=== PATIENT | male | born 1930 | race Caucasian/White ===

== ENCOUNTER 2016-12-04 18:25 | Inpatient (IN) | payer MEDICARE, MEDICAID ==
[2016-12-04 20:05] LABS: HEMATOCRIT 37.1 % (39.0-49.0); HEMOGLOBIN 12.7 gm/dL (12.6-17.4); MEAN CELL VOLUME 92.7 fl (80-99); MEAN CORPUSCULAR HEMOGLOBIN 31.7 pg (27.0-31.0); MEAN CORPUSCULAR HGB CONC 34.2 pg (28.0-36.0); MEAN PLATELET VOLUME 8.5 fl; PLATELET COUNT 81 Th/cmm (150-400); RED CELL DISTRIBUTION WIDTH 14.1 % (11.5-20.0); WHITE BLOOD COUNT 2.9 Th/cmm (4.8-10.8)
[2016-12-04 20:19] LABS: ALB/GLOB RATIO 0.8 (1.0-1.8); ALKALINE PHOSPHATASE 182 U/L (34-104); ANION GAP 15.4 (7.0-16.0); BILIRUBIN,TOTAL 0.7 mg/dL (0.3-1.0); BUN - UREA NITROGEN 37 mg/dL (7-25); BUN/CREATININE RATIO 6.7; CALCIUM SERUM 8.5 mg/dL (8.6-10.3); CARBON DIOXIDE 30.6 mEq/L (21.0-31.0); CHLORIDE 97 mEq/L (98-107); GLUCOSE 111 mg/dL (70-105); SGOT 22 U/L (13-39); SGPT/ALT 23 U/L (7-52); SODIUM SERUM 139 mEq/L (136-145)
[2016-12-04 20:24] LABS: CREATININE - SERUM 5.5 mg/dL (0.7-1.3)
[2016-12-04 20:25] LABS: URINE BILIRUBIN SMALL (NEGATIVE); URINE COLOR ORANGE; URINE GLUCOSE (UA) NEGATIVE (NEGATIVE); URINE KETONE NEGATIVE (NEGATIVE)
[2016-12-04 20:26] LABS: URINE BLOOD LARGE (NEGATIVE); URINE PROTEIN >300 mg/dL (NEGATIVE); URINE UROBILINOGEN 0.2 E.U./dL (0.2 - 1.0)
[2016-12-04 20:27] LABS: URINE BACTERIA MANY /hpf (NONE SEEN); URINE EPITHELIAL CELLS FEW /lpf (FEW); URINE RBC 50-100 /hpf (0-5)
[2016-12-04 20:29] LABS: URINE WBC 25-50 /hpf (0-5)
[2016-12-04 20:40] LABS: BAND NEUTROPHILE 7 % (0-10); NEUTROPHILS 73 % (40-80); PLATELET ESTIMATE DECREASED PLATELETS (NORMAL); PLATELET MORPHOLOGY NORMAL (NORMAL); TOTAL CELLS COUNTED 100
[2016-12-04] MEDS ORDERED: Sodium Chloride 0.9% 100 ML IV ONE (20:53)
--- NOTE | 2016-12-04 22:08 | ED Physician Chart ---
Chief Complaint/HPI - Patient Information Date Seen:: 12/04/16 Time Seen:: 18:45 Chief Complaint:: hematuria History of Present Illness:: location: general quality: hematuria severity: mild duration: couple of days context: dialysis patient with persistent hematuria. pt baseline is severe dementia with little to no verbal communication. pt is awake, alert while in ER. no acute distress, no diaphoresis. no vomiting, no fever. pt reports no pain and also does not appear to be in any discomfort during ER stay. mod factors: none assoc s/s: none hx from facility RN and medic and Dr. Artis Allergies:: Allergies Allergy/AdvReac Type Severity Reaction Status Date / Time No Known Allergies Allergy Verified 12/04/16 18:39 Vitals:: Vital Signs - 8 hr 12/04/16 12/04/16 18:35 20:00 Temp 99.4 F 99.4 F HR 90 90 RR 20 20 BP 144/56 121/61 O2 Sat % 96 95 Historian:: EMS, Medical Records, Other Review:: Nurse's Note Reviewed, EMS run form Reviewed Review of Systems - Review of Systems General/Constitutional: No fever, No chills, No weight loss, No weakness, No diaphoresis, No edema, No loss of appetite Skin: No skin lesions, No rash, No bruising Head: No headache, No light-headedness Eyes: No loss of vision, No pain, No diplopia ENT: No earache, No nasal drainage, No sore throat, No tinnitus Neck: No neck pain, No swelling, No thyromegaly, No stiffness, No mass noted Cardio Vascular: No chest pain, No palpitations, No PND, No orthopnea, No edema Pulmonary: No SOB, No cough, No sputum, No wheezing GI: No nausea, No vomiting, No diarrhea, No pain, No melena, No hematochezia, No constipation, No hematemesis G/U: No dysuria, No frequency, No hematuria Musculoskeletal: No bone or joint pain, No back pain, No muscle pain Endocrine: No polyuria, No polydipsia Psychiatric: No prior psych history, No depression, No anxiety, No suicidal ideation Hematopoietic: No bruising, No lymphadenopathy Allergic/Immuno: No urticaria, No angioedema Neurological: No syncope, No focal symptoms, No weakness, No paresthesia, No headache, No seizure, No dizziness, No confusion, No vertigo Past Medical History - Past Medical History Past Medical History: HTN, CAD, PUD/GERD, ESRD, Other (gout, anemia, neuropathy) Family History: None Social History: Non Smoker, No Alcohol, No Drug Use, Single, Care Facility Surgical History: other (left upper limb AV fistula) Psychiatricy History: None Medication: Reviewed Family Medical History - Family Member Mother History Unknown: Yes Physical Exam - Physical Examination General/Constitutional: Awake, Well-developed, well-nourished, Alert, No distress, GCS 15, Non-toxic appearing Head: Atraumatic Eyes: Lids, conjuctiva normal, PERRL, EOMI Skin: Nl inspection, No rash, No skin lesions, No ecchymosis, Well hydrated, No lymphadenopathy ENMT: External ears, nose nl, Nasal exam nl, Lips, teeth, gums nl Neck: Nontender, Full ROM w/o pain, No JVD, No nuchal rigidity, No stridor Respiratory: Nl effort/Exclusion, Clear to Auscultation, No Wheeze/Rhonchi/Rales Cardio Vascular: RRR, No murmur, gallop, rubs, NL S1 S2 GI: No tenderness/rebounding/guarding, Normal BS's, Nondistended, No McBurney tenderness : No CVA tenderness Extremities: No tenderness or effusion, Full ROM, normal strength in all extremities, No edema, Normal digits & nails Neuro/Psych: Alert/oriented (pt is alert but does not speak during this exam. staff report this is baseline for this patient. that the patient does not usually speak ), Normal sensory exam, Normal motor strength Misc: normal gait, Normal back, No paraspinal tenderness Labs/Radiology/EKG Results - Lab Results Results: Laboratory Tests 12/04/16 12/04/16 12/04/16 19:40 19:54 19:54 WBC 2.9 L RBC 4.00 Hgb 12.7 Hct 37.1 L MCV 92.7 MCH 31.7 H MCHC Differential 34.2 RDW 14.1 Plt Count 81 L MPV 8.5 Band Neutrophils % 7 Neutrophils (Manual) 73 Lymphocytes 16 L Monocytes 4 Platelet Estimate DECREASED PLATELETS Platelet Morphology NORMAL RBC Morph Micro Appear NORMAL Sodium Potassium Chloride Carbon Dioxide Anion Gap BUN Creatinine Est GFR ( Amer) Est GFR (Non-Af Amer) BUN/Creatinine Ratio Glucose Whole Bld Lactic Acid 2.88 H* Calcium Total Bilirubin AST ALT Alkaline Phosphatase Total Protein Albumin Globulin Albumin/Globulin Ratio Urine Source [place] Urine Color ORANGE Urine Clarity SLIGHTLY CLOUDY Urine pH 7.0 Ur Specific [place] Urine Protein >300 H Urine Glucose (UA) NEGATIVE Urine Ketones NEGATIVE Urine Blood LARGE H Urine Nitrate NEGATIVE Urine Bilirubin SMALL H Urine Urobilinogen 0.2 Ur Leukocyte Esterase LARGE H Urine RBC 50-100 H Urine WBC 25-50 H Ur Epithelial Cells FEW Urine Bacteria MANY 12/04/16 19:54 WBC RBC Hgb Hct MCV MCH MCHC Differential RDW Plt Count MPV Band Neutrophils % Neutrophils (Manual) Lymphocytes Monocytes Platelet Estimate Platelet Morphology RBC Morph Micro Appear Sodium 139 Potassium 4.0 Chloride 97 L Carbon Dioxide 30.6 Anion Gap 15.4 BUN 37 H Creatinine 5.5 H* Est GFR ( Amer) TNP Est GFR (Non-Af Amer) TNP BUN/Creatinine Ratio 6.7 Glucose 111 H Whole Bld Lactic Acid Calcium 8.5 L Total Bilirubin 0.7 AST 22 ALT 23 Alkaline Phosphatase 182 H Total Protein 6.7 Albumin 3.0 L Globulin 3.7 Albumin/Globulin Ratio 0.8 L Urine Source Urine Color Urine Clarity Urine pH Ur Specific [place] Urine Protein Urine Glucose (UA) Urine Ketones Urine Blood Urine Nitrate Urine Bilirubin Urine Urobilinogen Ur Leukocyte Esterase Urine RBC Urine WBC Ur Epithelial Cells Urine Bacteria - Radiology Results Results: CXR no acute pneumothorax no acute rib fracture no acute infiltrate ER READ - EKG Interpretations Comments:: EKG NSR [address] elevation no acute ST depression old anterior infarct abnormal EKG ER READ Assessment - Assessment General Assessment: pt stable while in ER. ED Septic Shock - . Is Septic Shock (SBP<90, OR Lactate>4 mmol\L) present?: No - <6hrs of presentation: Vital Signs: Vital Signs - 8 hr 12/04/16 12/04/16 18:35 20:00 Temp 99.4 F 99.4 F HR 90 90 RR 20 20 BP 144/56 121/61 O2 Sat % 96 95 Assessment of Lungs: Documented in PE (scant crackles at lung bases bilaterally) Assessment of Heart: RRR EKG Interpretation: NSR Capillary refill evaluation: Capillary refill < 2 secs Skin Exam: Warm, Dry, Good Turgur, No Diaphoresis, No Mottling, No Edema, No Erythema Reassessment (Disposition) - Reassessment Reassessment:: ER course: pt stable during ER stay, occasional nonproductive cough. no fever, no vomiting, no tachycardia or tachypnea. stable during ER stay. nonverbal throughout. MDM: dialysis patient with obvious signs of urinary infection and unable to mount a typical white cell response. pt has remained stable throughout. lactate is elevated. pt is given small fluid bolus and monitored repeat lactic acid is trending downward. pt stable. will recommend admission and management of near sepsis/ sepsis urosepsis. pt case d/w Dr. Artis Reassessment Condition:: Improved - Diagnosis Diagnosis:: acute urosepsis - Patient Disposition Discharge/Transfer:: Acute Care w/in this hosp Admitted to:: Med/Surg Admitting Medical Physician:: Ted Damon Condition at Disposition:: Stable, Improved
[2016-12-04] MEDS: cefTRIAXone 1 GM in Sodium Chloride 0.9% 50 ML IV SCH (22:18)
--- NOTE | 2016-12-04 23:19 | Admit Criteria Form ---
Admit Criteria Forms - Admit Criteria Diagnosis: SEPSIS and OTHER FEBRILE ILLNESS, W/O FOCAL INFECTION Clinical Indications for Admission to Inpatient Care ( Place 'X' for any and all applicable criteria): Admission is indicated for ANY ONE of the following (1)(2)(3)(4): [ ] I. Bacteremia [ X]II. Suspected or identified specific infection requiring hospitalization (eg, meningitis, endocarditis) [ ]III. Hemodynamic instability [ ]IV. Altered mental status [ ]V. Failure or unavailability of outpatient antimicrobial treatment [ ]. Hypoxemia [ ]VII. Seizures [ ]VIII. High-risk febrile neutropenia [ ]IX. Need for parenteral antibiotic in patient who is likely to abuse vascular access device (eg, injection drug user) [A](7) [ ]X. Temperature greater than 104.9 degrees F (40.5 degrees C) (oral) [ X]XI. Inpatient admission required rather than observation care because of ANY ONE of the following: [ ]1) Specific infection identified that is too severe for outpatient treatment or observation care trial [ ]2) Metabolic disorder (eg, hypoglycemia, hyperglycemia, metabolic acidosis) that is severe or persistent [ ]3) Temperature greater than 103.1 degrees F (39.5 degrees C) ( oral) that is not responsive to observation care treatment [ ]4) IV fluid to replace significant ongoing (eg, for over 24 hours) losses (> 3 L/m2 per day) [ ]5) Supplemental oxygen or respiratory treatments for over 24 hours that is performable only in acute inpatient setting [ ]6) Parenteral nutrition regimen need that must be implemented on inpatient basis [ ]7) Strict or protective (eg, laminar flow) isolation [X ]8) Other condition, treatment or monitoring requiring inpatient admission Extended stay beyond goal length of stay may be needed for(1)(3) [ ]a) Sepsis or septic shock(22) [ ]b) Positive blood cultures [ ]c) Insufficient oral intake [ ]d) High-risk febrile neutropenia(29)(30) [ ]e) Continued fever and clinical instability [ ]f) Clinically active comorbid illness (e.g,heart failure, renal failure , diabetes) The original [employer] content created by [employer] has been revised. The portions of the content which have been revised are identified through the use of italic text or in bold, and [facility] [employer] has neither reviewed nor approved the modified material. All other unmodified content is copyright [facility]. Please see references footnoted in the original [facility] edition 2016 Admit Criteria Met?: Yes
[2016-12-05 05:55] LABS: HEMATOCRIT 35.5 % (39.0-49.0); HEMOGLOBIN 12.2 gm/dL (12.6-17.4); MEAN CELL VOLUME 93.1 fl (80-99); MEAN CORPUSCULAR HGB CONC 34.3 pg (28.0-36.0); MEAN PLATELET VOLUME 8.3 fl; PLATELET COUNT 68 Th/cmm (150-400); RED BLOOD COUNT 3.82 Mil/cmm (3.80-5.80); RED CELL DISTRIBUTION WIDTH 14.5 % (11.5-20.0)
[2016-12-05 06:15] LABS: ALB/GLOB RATIO 0.9 (1.0-1.8); ALKALINE PHOSPHATASE 155 U/L (34-104); ANION GAP 12.4 (7.0-16.0); BILIRUBIN,TOTAL 0.5 mg/dL (0.3-1.0); BUN - UREA NITROGEN 45 mg/dL (7-25); CALCIUM SERUM 8.2 mg/dL (8.6-10.3); CARBON DIOXIDE 31.6 mEq/L (21.0-31.0); CHLORIDE 99 mEq/L (98-107); GLUCOSE 84 mg/dL (70-105); SGOT 18 U/L (13-39); SGPT/ALT 20 U/L (7-52); SODIUM SERUM 139 mEq/L (136-145)
[2016-12-05 06:17] LABS: CREATININE - SERUM 6.4 mg/dL (0.7-1.3)
[2016-12-05] MEDS ORDERED: Piperacillin Sodium/Tazobact 2.25 gm Vial IV ONE (06:36)
[2016-12-05 07:39] LABS: WHITE BLOOD COUNT 2.2 Th/cmm (4.8-10.8)
[2016-12-05] MEDS ORDERED: Vancomycin HCl 1.5 GM in Sodium Chloride 0.9% 500 ML IV ONE (08:00)
[2016-12-05 09:53] LABS: BAND NEUTROPHILE 3 % (0-10); NEUTROPHILS 60 % (40-80); PLATELET ESTIMATE DECREASED PLATELETS (NORMAL); PLATELET MORPHOLOGY NORMAL (NORMAL); TOTAL CELLS COUNTED 100
--- NOTE | 2016-12-05 11:51 | History & Physical ---
PATIENT IDENTIFICATION: An 86-year-old male. CHIEF COMPLAINT: Sent to Emergency Room for evaluation of altered mental status with blood in the urine. HISTORY OF PRESENT ILLNESS: An 86-year-old resident of [facility], currently on dialysis dependent, has history of chronic pain syndrome, spinal stenosis, history of diabetes mellitus, hypertension, gout, recently started to have a fever and chills. For that, the patient was given symptomatic therapy, no improvement. The patient was given antibiotic as well. The patient started to have evidence of altered mental status with fluctuating blood pressure. The patient was sent to the Emergency Room at [facility] where the patient was evaluated and sent to the patient home. It was noted by the nursing staff that when patient came back to the facility, the patient had a ethel blood in the urine. The patient was scheduled to have dialysis done. I did advise that the patient should be transferred out to [facility] for further management in the view of his fluctuating blood pressure with hematuria and fluctuating mental status. The patient has significant dementia as well as language barrier. Limited history is available. PAST MEDICAL HISTORY: Remarkable for: 1. Diabetes. 2. Hypertension. 3. DJD. 4. End-stage renal disease, on hemodialysis. 5. Gout. 6. Thrombocytopenia and leukopenia. MEDICATIONS: Has been reviewed and reconciled. ALLERGIES: The patient is not allergic to medications. SOCIAL HISTORY: The patient resides in a correction. The patient has no smoking, alcohol or drug use. FAMILY MEDICAL HISTORY: Remarkable for diabetes. REVIEW OF SYSTEMS: Unable to obtain meaningful history from the patient. PHYSICAL EXAMINATION: GENERAL: An 86-year-old, alert, awake, lying in the bed without any acute distress. VITAL SIGNS: Temperature 99, pulse is 100, respiratory rate is 18, blood pressure is 164/86. SKIN: Warm to touch. HEENT: Normocephalic, atraumatic. Extraocular muscles are intact. Tongue was pink and coated. Poor dentition noted. NECK: Supple, no JVD, no hepatojugular reflux. No lymphadenopathy. No thyromegaly or carotid bruit. HEART: Both heart sounds are regular. CHEST AND LUNGS: Equal in expansion with no expiratory wheezing. ABDOMEN: Soft. No guarding, no rigidity. Liver, spleen palpable. No palpable mass. EXTREMITIES: No edema, no cyanosis. AV graft noted with good bruit. BACK: No kyphosis or scoliosis. NEUROLOGIC: Alert, awake, follows simple commands. AVAILABLE DIAGNOSTIC DATA: Has been reviewed. CLINICAL IMPRESSION: 1. Significant hematuria with urinary tract infections in the presence of diabetes and immunocompromised status, suspect patient has most likely complicated urinary tract infection with possible evidence of pyelonephritis. 2. Elevated lactic acid, suspect patient has sepsis. 3. End-stage renal disease, on hemodialysis. 4. Leukopenia and thrombocytopenia, chronic needs further evaluation. 5. Diabetes mellitus. 6. Degenerative joint disease. 7. Dementia. 8. Gout. PLAN: 1. Admit this patient to Med/Surg floor. 2. IV antibiotic. 3. Infectious Disease consultation. 4. Appropriate home medicine reconciliation. 5. Hematology/Oncology evaluation for thrombocytopenia and leukemia. 6. General nursing care. 7. Follow up labs. 8. Appropriate home medicine reconciliation. 9. Follow consult recommendations. 10. Care plan reviewed and discussed with staff. [facility]# [id number]
--- NOTE | 2016-12-05 11:52 | Diagnostic Imaging Report ---
CHEST X-RAY: AP view INDICATION: Cough COMPARISON: None FINDINGS: Chronic changes are seen with increased left basal lung markings. No focal consolidation or pleural effusions. Heart size is normal. Atherosclerosis is noted. Degenerative changes of the spine are noted. A vascular stent of the left upper x-rays partially visualized. IMPRESSION: Chronic lung changes and increased left basal lung markings which may be due to subsegmental atelectasis versus scarring. Acute processes is considered less likely. Please correlate clinically. No focal consolidation identified. Atherosclerotic vascular disease.
[2016-12-05] MEDS: INSULIN ASPART SLIDING SCALE 100 UNITS/ML UNIT SUBQ SCH ×3 (12:26→20:53)
--- NOTE | 2016-12-05 12:56 | Diagnostic Imaging Report ---
Head CT without intravenous contrast Indication: CVA Comparison: None Technique: Axial images were obtained from the vertex to the skull base without IV contrast. Coronal reconstructions were made. Total DLP: 712, CTDI37.4 FINDINGS: Images of the brain obtained without contrast demonstrate no evidence of acute hemorrhage. Atrophy is noted. Mild white matter disease is noted. The ventricles and basal cisterns are patent. No mass effect or midline shift. There is mucosal thickening of paranasal sinuses. Atherosclerosis is noted. There is a chronic appearing left-sided pneumatic arch fracture and chronic appearing nasal fractures. IMPRESSION: No evidence of an acute intracranial hemorrhage. Atrophy. Mild supratentorial white matter disease which is nonspecific and may be due to chronic microvessel ischemia.. If indicated follow-up MRI may also be obtained for further assessment. Atherosclerotic vascular disease. Old nasal and old left zygomatic arch fractures.
--- NOTE | 2016-12-05 15:44 | Infectious Disease Prog Note ---
Infectious Disease Subjective - Review of Systems Service Date: 12/05/16 Subjective: [id number] Infectious Disease Objective - Results Result Diagrams: 12/05/16 05:33 12/05/16 05:33 Recent Labs: Laboratory Last Values WBC 2.2 Th/cmm (4.8-10.8) L* D 12/05/16 05:33 RBC 3.82 Mil/cmm (3.80-5.80) 12/05/16 05:33 Hgb 12.2 gm/dL (12.6-17.4) L 12/05/16 05:33 Hct 35.5 % (39.0-49.0) L 12/05/16 05:33 MCV 93.1 fl (80-99) 12/05/16 05:33 MCH 32.0 pg (27.0-31.0) H 12/05/16 05:33 MCHC Differential 34.3 pg (28.0-36.0) 12/05/16 05:33 RDW 14.5 % (11.5-20.0) 12/05/16 05:33 Plt Count 68 Th/cmm (150-400) L 12/05/16 05:33 MPV 8.3 fl 12/05/16 05:33 Band Neutrophils % 3 % (0-10) 12/05/16 05:33 Neutrophils (Manual) 60 % (40-80) 12/05/16 05:33 Lymphocytes 25 % (20-50) 12/05/16 05:33 Monocytes 11 % (2-10) H 12/05/16 05:33 Atypical Lymphocytes 1 % 12/05/16 05:33 Platelet Estimate DECREASED PLATELETS (NORMAL) 12/05/16 05:33 Platelet Morphology NORMAL (NORMAL) 12/05/16 05:33 RBC Morph Micro Appear NORMAL (NORMAL) 12/05/16 05:33 Sodium 139 mEq/L (136-145) 12/05/16 05:33 Potassium 4.0 mEq/L (3.5-5.1) 12/05/16 05:33 Chloride 99 mEq/L (98-107) 12/05/16 05:33 Carbon Dioxide 31.6 mEq/L (21.0-31.0) H 12/05/16 05:33 Anion Gap 12.4 (7.0-16.0) 12/05/16 05:33 BUN 45 mg/dL (7-25) H 12/05/16 05:33 Creatinine 6.4 mg/dL (0.7-1.3) H* 12/05/16 05:33 Est GFR ( Amer) TNP 12/05/16 05:33 Est GFR (Non-Af Amer) TNP 12/05/16 05:33 BUN/Creatinine Ratio 7.0 12/05/16 05:33 Glucose 84 mg/dL (70-105) 12/05/16 05:33 POC Glucose 117 MG/DL (70 - 105) H 12/05/16 12:25 Whole Bld Lactic Acid 2.34 mmol/L (0.60-2.00) H* 12/04/16 22:00 Calcium 8.2 mg/dL (8.6-10.3) L 12/05/16 05:33 Total Bilirubin 0.5 mg/dL (0.3-1.0) 12/05/16 05:33 AST 18 U/L (13-39) 12/05/16 05:33 ALT 20 U/L (7-52) 12/05/16 05:33 Alkaline Phosphatase 155 U/L (34-104) H 12/05/16 05:33 Total Protein 6.1 gm/dL (6.0-8.3) 12/05/16 05:33 Albumin 2.8 gm/dL (4.2-5.5) L 12/05/16 05:33 Globulin 3.3 gm/dL 12/05/16 05:33 Albumin/Globulin Ratio 0.9 (1.0-1.8) L 12/05/16 05:33 Urine Source [place] 12/04/16 19:40 Urine Color ORANGE 12/04/16 19:40 Urine Clarity SLIGHTLY CLOUDY (CLEAR) 12/04/16 19:40 Urine pH 7.0 12/04/16 19:40 Ur Specific [place] (1.005-1.030) 12/04/16 19:40 Urine Protein >300 mg/dL (NEGATIVE) H 12/04/16 19:40 Urine Glucose (UA) NEGATIVE mg/dL (NEGATIVE) 12/04/16 19:40 Urine Ketones NEGATIVE mg/dL (NEGATIVE) 12/04/16 19:40 Urine Blood LARGE (NEGATIVE) H 12/04/16 19:40 Urine Nitrate NEGATIVE (NEGATIVE) 12/04/16 19:40 Urine Bilirubin SMALL (NEGATIVE) H 12/04/16 19:40 Urine Urobilinogen 0.2 E.U./dL (0.2 - 1.0) 12/04/16 19:40 Ur Leukocyte Esterase LARGE (NEGATIVE) H 12/04/16 19:40 Urine RBC 50-100 /hpf (0-5) H 12/04/16 19:40 Urine WBC 25-50 /hpf (0-5) H 12/04/16 19:40 Ur Epithelial Cells FEW /lpf (FEW) 12/04/16 19:40 Urine Bacteria MANY /hpf (NONE SEEN) 12/04/16 19:40 - Physical Exam Vitals and I&O: Vital Signs Temp 98.3 F 12/05/16 11:26 Pulse 70 12/05/16 11:26 Resp 18 12/05/16 11:26 BP 109/50 12/05/16 11:26 Pulse Ox 96 12/05/16 11:26 Intake & Output 12/04/16 12/05/16 12/05/16 18:59 06:59 18:59 Intake Total 200 300 Balance 200 300 Intake: Intake, IV Amount 300 Piperacillin Sodium/ 50 Tazobact 2.25 gm In Sodium Chloride 0.9% 50 ml @ 100 mls/hr IV Q8H [facility] Rx#:[id number] Oral 200 Active Medications: Current Medications Ceftriaxone Sodium 1 gm/ (Sodium Chloride) 50 mls @ 100 mls/hr IV Q24HR [facility] Stop: 02/02/17 22:14 Last Admin: 12/04/16 22:18 Dose: 100 mls/hr Insulin Aspart (Novolog Insulin Sliding Scale) 0 units SUBQ ACHS [facility] PRN Reason: Protocol Stop: 02/03/17 11:29 Last Admin: 12/05/16 12:26 Dose: Not Given
[2016-12-05] MEDS ORDERED: VTE Chemical Prophylaxis Screen/Admission MC PRN (17:09)
[2016-12-05] MEDS: cefTRIAXone 1 GM in Sodium Chloride 0.9% 50 ML IV SCH (21:23)
--- NOTE | 2016-12-06 00:45 | Consultation ---
ATTENDING PHYSICIAN: Dr. Ted Damon. REASON FOR CONSULTATION: End-stage renal disease. HISTORY OF PRESENT ILLNESS: The patient is male dialysis patient from Dr. Hunter who was brought to the Emergency Room with hematuria and admitted, I am called in consultation to manage his dialysis. PAST MEDICAL HISTORY: Significant for end-stage renal disease and also hypertension, coronary artery disease, gout, peptic ulcer disease. FAMILY HISTORY: Noncontributory. SOCIAL HISTORY: The patient does not drink, smoke or use any drugs. ALLERGIES: NO KNOWN DRUG ALLERGIES. MEDICATIONS: See medication reconciliation form. PHYSICAL EXAMINATION: VITAL SIGNS: His blood pressure is 144/56, temperature is 99.4, pulse 90, respirations 20. HEENT: Normocephalic, atraumatic. Pupils equal, round, reacting to light and accommodation. Extraocular movements are intact. CARDIOVASCULAR: S1, S2 heard, regular rate and rhythm. LUNGS: Clear to auscultation bilaterally. ABDOMEN: Soft. No hepatosplenomegaly. EXTREMITIES: There is no cyanosis, clubbing or edema. NEUROLOGIC: Cranial nerves 2-12 are intact. No focal deficit. LABORATORY DATA: WBC 2.9, hemoglobin 12.7, hematocrit 37.1, platelet count is 81,000. Urinalysis shows cloudy orange urine with 3+ protein, small amount of bilirubin, large amount of leukocyte esterase, rbc 50-100 per high-power field and wbc 25-50 per high-power field. Sodium is 139, potassium 4.0, chloride 97, bicarbonate 30.6, BUN 37, creatinine 5.5, glucose 111, calcium 8.5, bilirubin 0.7, AST 22, ALT 23, alkaline phosphatase 182, total protein 6.7, albumin 3.0. ASSESSMENT AND PLAN: 1. Hematuria, this is likely due to urinary infection caused by BPH. Workup per Urology. 2. End-stage renal disease, on hemodialysis, Sunday, Sunday and Sunday. We will dialyze the patient in a.m. per schedule. 3. Hypertension. Continue antihypertensive medications. 4. Gastroesophageal reflux disease. Continue PPI. Thank you very much for the privilege of consulting a new patient of Dr. Damon. JOB# [id number]
--- NOTE | 2016-12-06 05:31 | Consultation ---
REFERRING PHYSICIAN: Dr. Tde Damon. REASON FOR CONSULTATION: UTI, sepsis. HISTORY OF PRESENT ILLNESS: The patient is an 86-year-old male with the past medical history of diabetes mellitus type 2, hypertension, gout, developed fever and chills. He was treated symptomatically and oral antibiotics were given. He had visited to [facility] and [facility], but was sent back to nursing facility. His creatinine was also elevated. As he was noted to have fever, chills and blood in the urine, he was sent to the [facility] for further care. On initial evaluation, the patient's temperature was 99.4-degree Fahrenheit and WBC count was 2900. Urinalysis showed pyuria and bacteriuria and ID consult was called for further antibiotic management. Meanwhile, the patient was already started on Rocephin and had Zosyn. PAST MEDICAL HISTORY: Includes diabetes mellitus type 2, hypertension, DJD, CKD stage 5, on hemodialysis, gout, thrombocytopenia and leukopenia. MEDICATIONS: As per medication reconciliation sheet. Antibiotic knight, the patient is on vancomycin while receiving Zosyn and have also received Rocephin. ALLERGIES: NKDA. SOCIAL HISTORY: The patient lives in a nursing facility. No history of smoking, alcohol or drug use. FAMILY HISTORY: Noncontributory except diabetes mellitus. REVIEW OF SYSTEMS: The patient is a poor historian, unable to give any history, but as per the record, the patient had developed a fever and chills from nursing facility and had developed hematuria. Skin, the patient has not had any wound in the back. PHYSICAL EXAMINATION: CURRENT VITAL SIGNS: Shows temperature is 98.3, pulse 70, respiration is 18, blood pressure 109/50. GENERAL: The patient is comfortable, lying in the bed, not in acute distress. HEENT: Head is normocephalic, atraumatic. Oral cavity moist, pink tongue. Eyes: Pallor is present, no icterus. Pupils, PERRLA, EOMI. NECK: Supple, no JVD, no carotid bruit. Trachea in midline. CHEST: Bilateral breath sounds. No crackles or wheezing. HEART: S1, S2 within normal limits. Regular rhythm. No murmur, no gallop. ABDOMEN: Soft, nontender, nondistended. Bowel sounds present. No splenomegaly appreciated. EXTREMITIES: No cyanosis, no clubbing, no edema. The patient has AV graft in his left arm with a good bruit and thrill. NEUROLOGIC: Alert, awake, follows the command. LABORATORY DATA: Current lab shows WBC count is 2200, hemoglobin 12.2, hematocrit is 35.5, platelets are 68,000, neutrophils 60% and lymphocyte 25%. Sodium 139, potassium 4, chloride 99, bicarb is 32, BUN is 45, creatinine is 6.4, glucose is 84. Urinalysis shows large blood, negative nitrite, large leukoesterase, wbc 25-50 and many bacteria. IMPRESSION: 1. 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 2. Urinary tract infection. 3. Chronic kidney disease, stage 5, on hemodialysis. 4. Hypertension. 5. Diabetes mellitus. RECOMMENDATIONS: We will continue Rocephin, has given one dose of vancomycin. We will discontinue Zosyn. Thank you, Dr. Damon, for involving me in taking care of this patient. JOB# [id number] [facility]
[2016-12-06] MEDS: INSULIN ASPART SLIDING SCALE 100 UNITS/ML UNIT SUBQ SCH ×4 (06:59→22:05)
[2016-12-06] MEDS ORDERED: Hydrocodone/APAP 10 mg/325 mg Tab PO PRN (11:09)
[2016-12-06 12:03] LABS: INR 0.98 (0.5-1.4); PROTHROMBIN TIME (TEST) 9.7 SECONDS (9.5-11.5)
[2016-12-06 12:06] LABS: ALB/GLOB RATIO 0.8 (1.0-1.8); ALKALINE PHOSPHATASE 148 U/L (34-104); ANION GAP 13.1 (7.0-16.0); BILIRUBIN,TOTAL 0.5 mg/dL (0.3-1.0); BUN - UREA NITROGEN 61 mg/dL (7-25); BUN/CREATININE RATIO 7.2; CALCIUM SERUM 7.8 mg/dL (8.6-10.3); CARBON DIOXIDE 26.6 mEq/L (21.0-31.0); CHLORIDE 100 mEq/L (98-107); GLUCOSE 146 mg/dL (70-105); POTASSIUM SERUM 3.7 mEq/L (3.5-5.1); SGOT 31 U/L (13-39); SGPT/ALT 23 U/L (7-52); SODIUM SERUM 136 mEq/L (136-145)
[2016-12-06 12:13] LABS: HEMATOCRIT 35.7 % (39.0-49.0); HEMOGLOBIN 12.2 gm/dL (12.6-17.4); MEAN CELL VOLUME 92.5 fl (80-99); MEAN CORPUSCULAR HEMOGLOBIN 31.5 pg (27.0-31.0); MEAN PLATELET VOLUME 8.6 fl; PLATELET COUNT 56 Th/cmm (150-400); RED BLOOD COUNT 3.86 Mil/cmm (3.80-5.80); RED CELL DISTRIBUTION WIDTH 14.6 % (11.5-20.0)
[2016-12-06 12:16] LABS: WHITE BLOOD COUNT 1.8 Th/cmm (4.8-10.8)
[2016-12-06 12:17] LABS: CREATININE - SERUM 8.5 mg/dL (0.7-1.3)
--- NOTE | 2016-12-06 12:32 | Consultation ---
HEMATOLOGY ONCOLOGY CONSULTATION REFERRING PHYSICIAN: Ted Damon M.D. REASON FOR CONSULTATION: Leukopenia and thrombocytopenia. HISTORY OF PRESENT ILLNESS: The patient is an 86-year-old male who is a resident of a nursing facility. He was admitted because of fever chills and reported blood in the urine. The patient was found to have leukopenia and thrombocytopenia; therefore, I was asked to evaluate. PAST MEDICAL HISTORY: Diabetes, hypertension, end-stage renal disease, on hemodialysis, gout and cytopenia. MEDICATIONS: Reviewed. SOCIAL HISTORY: Lives in a nursing facility. PHYSICAL EXAMINATION: GENERAL: The patient is awake, not in distress. VITAL SIGNS: Stable, no peripheral lymphadenopathy. CHEST: Good air entry. ABDOMEN: Scars of previous surgery, umbilical hernia, mild ascites. EXTREMITIES: Unremarkable. LABORATORY DATA: White count 2.2, hemoglobin 12.2, platelets 68 with normal ____ volume and MCV, creatinine 6.4. AST, ALT normal, alkaline phosphatase is slightly elevated. Albumin 2.8. HIV negative. ASSESSMENT: 1. Mild leukopenia and thrombocytopenia, ____ neutropenic. This is likely secondary to hypersplenism in this patient with history of cirrhosis. I will obtain abdominal ultrasound, B12 and folate level and coagulation panel. 2. End-stage renal disease. 3. Possible sepsis per the ID specialist. Case was discussed with the daughter and granddaughter at bedside. Thank you Dr. Damon for the opportunity to participate in the care of this interesting case. JOB# [id number]
[2016-12-06 12:51] LABS: BAND NEUTROPHILE 1 % (0-10); EOSINOPHIL 1 % (0-5); NEUTROPHILS 60 % (40-80); TOTAL CELLS COUNTED 100
[2016-12-06 12:52] LABS: PLATELET ESTIMATE DECREASED PLATELETS (NORMAL); PLATELET MORPHOLOGY NORMAL (NORMAL)
[2016-12-06] MEDS: Ferrous Sulfate 325 MG TAB PO SCH (18:48)
--- NOTE | 2016-12-06 18:59 | Infectious Disease Prog Note ---
Infectious Disease Subjective - Review of Systems Service Date: 12/06/16 Subjective: No fever so far. Infectious Disease Objective - Results Result Diagrams: 12/06/16 11:15 12/06/16 11:15 Recent Labs: Laboratory Last Values WBC 1.8 Th/cmm (4.8-10.8) L* 12/06/16 11:15 RBC 3.86 Mil/cmm (3.80-5.80) 12/06/16 11:15 Hgb 12.2 gm/dL (12.6-17.4) L 12/06/16 11:15 Hct 35.7 % (39.0-49.0) L 12/06/16 11:15 MCV 92.5 fl (80-99) 12/06/16 11:15 MCH 31.5 pg (27.0-31.0) H 12/06/16 11:15 MCHC Differential 34.0 pg (28.0-36.0) 12/06/16 11:15 RDW 14.6 % (11.5-20.0) 12/06/16 11:15 Plt Count 56 Th/cmm (150-400) L 12/06/16 11:15 MPV 8.6 fl 12/06/16 11:15 Band Neutrophils % 1 % (0-10) 12/06/16 11:15 Neutrophils (Manual) 60 % (40-80) 12/06/16 11:15 Lymphocytes 26 % (20-50) 12/06/16 11:15 Monocytes 9 % (2-10) 12/06/16 11:15 Eosinophils 1 % (0-5) 12/06/16 11:15 Atypical Lymphocytes 3 % 12/06/16 11:15 Platelet Estimate DECREASED PLATELETS (NORMAL) 12/06/16 11:15 Platelet Morphology NORMAL (NORMAL) 12/06/16 11:15 RBC Morph Micro Appear NORMAL (NORMAL) 12/06/16 11:15 Smear Path Review SEE BELOW 12/06/16 11:15 PT 9.7 SECONDS (9.5-11.5) 12/06/16 11:15 INR 0.98 (0.5-1.4) 12/06/16 11:15 PTT (Actin FS) 37.3 SECONDS (26.0-38.0) 12/06/16 11:15 Fibrinogen 251.0 mg/dL (200.0-400.0) 12/06/16 11:15 Sodium 136 mEq/L (136-145) 12/06/16 11:15 Potassium 3.7 mEq/L (3.5-5.1) 12/06/16 11:15 Chloride 100 mEq/L (98-107) 12/06/16 11:15 Carbon Dioxide 26.6 mEq/L (21.0-31.0) 12/06/16 11:15 Anion Gap 13.1 (7.0-16.0) 12/06/16 11:15 BUN 61 mg/dL (7-25) H 12/06/16 11:15 Creatinine 8.5 mg/dL (0.7-1.3) H* 12/06/16 11:15 Est GFR ( Amer) TNP 12/06/16 11:15 Est GFR (Non-Af Amer) TNP 12/06/16 11:15 BUN/Creatinine Ratio 7.2 12/06/16 11:15 Glucose 146 mg/dL (70-105) H 12/06/16 11:15 POC Glucose 174 MG/DL (70 - 105) H 12/06/16 11:25 Whole Bld Lactic Acid 2.34 mmol/L (0.60-2.00) H* 12/04/16 22:00 Calcium 7.8 mg/dL (8.6-10.3) L 12/06/16 11:15 Magnesium 2.1 mg/dL (1.9-2.7) 12/06/16 11:15 Total Bilirubin 0.5 mg/dL (0.3-1.0) 12/06/16 11:15 AST 31 U/L (13-39) 12/06/16 11:15 ALT 23 U/L (7-52) 12/06/16 11:15 Alkaline Phosphatase 148 U/L (34-104) H 12/06/16 11:15 Total Protein 6.4 gm/dL (6.0-8.3) 12/06/16 11:15 Albumin 2.8 gm/dL (4.2-5.5) L 12/06/16 11:15 Globulin 3.6 gm/dL 12/06/16 11:15 Albumin/Globulin Ratio 0.8 (1.0-1.8) L 12/06/16 11:15 TSH 1.35 uIU/ml (0.34-5.60) 12/05/16 05:33 Urine Source [place] 12/04/16 19:40 Urine Color ORANGE 12/04/16 19:40 Urine Clarity SLIGHTLY CLOUDY (CLEAR) 12/04/16 19:40 Urine pH 7.0 12/04/16 19:40 Ur Specific [place] (1.005-1.030) 12/04/16 19:40 Urine Protein >300 mg/dL (NEGATIVE) H 12/04/16 19:40 Urine Glucose (UA) NEGATIVE mg/dL (NEGATIVE) 12/04/16 19:40 Urine Ketones NEGATIVE mg/dL (NEGATIVE) 12/04/16 19:40 Urine Blood LARGE (NEGATIVE) H 12/04/16 19:40 Urine Nitrate NEGATIVE (NEGATIVE) 12/04/16 19:40 Urine Bilirubin SMALL (NEGATIVE) H 12/04/16 19:40 Urine Urobilinogen 0.2 E.U./dL (0.2 - 1.0) 12/04/16 19:40 Ur Leukocyte Esterase LARGE (NEGATIVE) H 12/04/16 19:40 Urine RBC 50-100 /hpf (0-5) H 12/04/16 19:40 Urine WBC 25-50 /hpf (0-5) H 12/04/16 19:40 Ur Epithelial Cells FEW /lpf (FEW) 12/04/16 19:40 Urine Bacteria MANY /hpf (NONE SEEN) 12/04/16 19:40 Random Vancomycin 11.4 ug/mL (5.0-40.0) 12/06/16 11:15 Hepatitis C Antibody >11.0 s/co ratio (0.0-0.9) H 12/05/16 05:33 HIV 1&2 Antibody Screen NEGATIVE (NEG) 12/05/16 05:33 - Physical Exam Vitals and I&O: Vital Signs Temp 97.4 F 12/06/16 16:00 Pulse 72 12/06/16 16:00 Resp 18 12/06/16 16:00 BP 107/54 12/06/16 16:00 Pulse Ox 95 12/06/16 16:00 Intake & Output 12/05/16 12/06/16 12/06/16 18:59 06:59 18:59 Intake Total 300 250 Output Total 20 Balance 300 250 -20 Intake: Intake, IV Amount 300 50 Piperacillin Sodium/ 50 Tazobact 2.25 gm In Sodium Chloride 0.9% 50 ml @ 100 mls/hr IV Q8H [facility] Rx#:[id number] cefTRIAXone 1 gm In 50 Sodium Chloride 0.9% 50 ml @ 100 mls/hr IV Q24HR [facility] Rx#:[id number] Oral 200 Output: Urine 20 Other: # Bowel Movements 0 1 Active Medications: Current Medications Acetaminophen (Tylenol) 650 mg PO Q6H PRN PRN Reason: TEMP >101.0 Acetaminophen/Hydrocodone Bitart ([place] 10 Mg/325 Mg) 1 tab PO BID PRN PRN Reason: MODERATE TO SEVERE PAIN Stop: 02/04/17 11:08 Aspirin (Ecotrin) 81 mg PO DAILY [facility] Stop: 02/05/17 08:59 Colchicine (Colcrys) 0.6 mg PO DAILY [facility] Stop: 02/04/17 14:59 Last Admin: 12/06/16 18:48 Dose: 0.6 mg Ferrous Sulfate (Iron) 325 mg PO BID [facility] Stop: 02/04/17 16:59 Last Admin: 12/06/16 18:48 Dose: 325 mg Folic Acid (Folate) 1 mg PO DAILY [facility] Stop: 02/05/17 08:59 Gabapentin (Neurontin) 300 mg PO BID [facility] Stop: 02/04/17 16:59 Last Admin: 12/06/16 18:48 Dose: 300 mg Ceftriaxone Sodium 1 gm/ (Sodium Chloride) 50 mls @ 100 mls/hr IV Q24HR [facility] Stop: 02/02/17 22:14 Last Infusion: 12/05/16 21:53 Dose: Infused Insulin Aspart (Novolog Insulin Sliding Scale) 0 units SUBQ ACHS [facility] PRN Reason: Protocol Stop: 02/03/17 11:29 Last Admin: 12/06/16 18:48 Dose: 4 units Miscellaneous (Vte Chemical Prophylaxis Screen/ Admission) 1 ea PRN PRN PRN Reason: PROTOCOL Stop: 02/03/17 17:08 Miscellaneous (Doxercalciferol [Hectorol]) 1 mcg IV MWF [facility] Stop: 02/06/17 08:59 Miscellaneous (Clinical Monitoring) 1 ea PRN PRN PRN Reason: RENAL DOSING Stop: 02/04/17 14:32 Pantoprazole Sodium (Protonix) 40 mg PO DAILY [facility] Stop: 02/05/17 08:59 General: no acute distress, well developed, well nourished HEENT: atraumatic, normocephalic, PERRLA, EOMI Neck: supple Cardiovascular: S1S2, regular Lungs: clear to auscultation bilaterally, clear to percussion Abdomen: soft, no tender, no distended Extremities: no cyanosis, no clubbing, no edema Neurological: awake, alert, oriented Skin: intact Infectious Disease Assmt/Plan - Assessment Assessment: 1. Fever. resolved. 2. Neutropenia. 3. Thrombocytopenia. 3. CKD 5 on HD. 4. DM2 5. HTN. - Plan Plan: Continue rocephin.
[2016-12-06] MEDS: cefTRIAXone 1 GM in Sodium Chloride 0.9% 50 ML IV SCH (21:40)
[2016-12-06] MEDS ORDERED: Dextrose 50% 50 mL Abboject IVP ONE (21:47)
[2016-12-07] MEDS: INSULIN ASPART SLIDING SCALE 100 UNITS/ML UNIT SUBQ SCH ×4 (06:31→20:50)
[2016-12-07 06:59] LABS: HEMATOCRIT 36.2 % (39.0-49.0); HEMOGLOBIN 12.5 gm/dL (12.6-17.4); MEAN CELL VOLUME 92.2 fl (80-99); MEAN CORPUSCULAR HEMOGLOBIN 31.9 pg (27.0-31.0); MEAN CORPUSCULAR HGB CONC 34.6 pg (28.0-36.0); PLATELET COUNT 53 Th/cmm (150-400); RED BLOOD COUNT 3.93 Mil/cmm (3.80-5.80); RED CELL DISTRIBUTION WIDTH 14.2 % (11.5-20.0)
[2016-12-07 07:18] LABS: ALB/GLOB RATIO 0.8 (1.0-1.8); ALKALINE PHOSPHATASE 144 U/L (34-104); BILIRUBIN,TOTAL 0.6 mg/dL (0.3-1.0); BUN - UREA NITROGEN 32 mg/dL (7-25); BUN/CREATININE RATIO 5.2; CALCIUM SERUM 8.2 mg/dL (8.6-10.3); CARBON DIOXIDE 29.4 mEq/L (21.0-31.0); CHLORIDE 100 mEq/L (98-107); GLUCOSE 91 mg/dL (70-105); POTASSIUM SERUM 3.4 mEq/L (3.5-5.1); SGOT 34 U/L (13-39); SGPT/ALT 27 U/L (7-52); SODIUM SERUM 139 mEq/L (136-145)
[2016-12-07 07:21] LABS: CREATININE - SERUM 6.2 mg/dL (0.7-1.3)
[2016-12-07 07:34] LABS: WHITE BLOOD COUNT 1.7 Th/cmm (4.8-10.8)
[2016-12-07] MEDS: Pantoprazole 40 mg EC Tab PO SCH (08:16)
[2016-12-07] MEDS: Ferrous Sulfate 325 MG TAB PO SCH ×2 (08:17→17:11)
[2016-12-07 10:59] LABS: BAND NEUTROPHILE 1 % (0-10); EOSINOPHIL 5 % (0-5); NEUTROPHILS 36 % (40-80); PLATELET ESTIMATE DECREASED PLATELETS (NORMAL); PLATELET MORPHOLOGY NORMAL (NORMAL); TOTAL CELLS COUNTED 100
[2016-12-07 11:18] LABS: HEP B CORE AB TOTAL Negative (Negative); HEP B CORE IGM Negative (Negative); HEP C ANTIBODY >11.0 s/co ratio (0.0-0.9)
--- NOTE | 2016-12-07 15:20 | Diagnostic Imaging Report ---
Abdominal ultrasound HISTORY: Cirrhosis The exam is very limited due to lack of patient cooperation and a large amount of bowel gas. There is incomplete visualization liver with no obvious focal lesions. The gallbladder is not seen and should be correlated with patient's surgical history. Common bile duct could not be seen. The pancreas cannot be visualized. The right kidney is poorly visualized. Limited visualization of the margins of the left kidney with a questionable 2.0 cm cyst. The spleen appears increased in size (13.9 cm length). IMPRESSION: 1. Very Limited/suboptimal exam due to considerable bowel gas and lack of patient cooperation 2. Splenomegaly 3. Nonvisualization the gallbladder. The finding should be correlated with the patient's surgical history.
[2016-12-07 16:16] LABS: FOLIC ACID >20.0 ng/mL (>3.0)
--- NOTE | 2016-12-07 18:23 | Infectious Disease Prog Note ---
Infectious Disease Subjective - Review of Systems Service Date: 12/07/16 Subjective: No fever so far. Infectious Disease Objective - Results Result Diagrams: 12/07/16 06:40 12/07/16 06:40 Recent Labs: Laboratory Last Values WBC 1.7 Th/cmm (4.8-10.8) L* 12/07/16 06:40 RBC 3.93 Mil/cmm (3.80-5.80) 12/07/16 06:40 Hgb 12.5 gm/dL (12.6-17.4) L 12/07/16 06:40 Hct 36.2 % (39.0-49.0) L 12/07/16 06:40 MCV 92.2 fl (80-99) 12/07/16 06:40 MCH 31.9 pg (27.0-31.0) H 12/07/16 06:40 MCHC Differential 34.6 pg (28.0-36.0) 12/07/16 06:40 RDW 14.2 % (11.5-20.0) 12/07/16 06:40 Plt Count 53 Th/cmm (150-400) L 12/07/16 06:40 MPV 8.0 fl 12/07/16 06:40 Band Neutrophils % 1 % (0-10) 12/07/16 06:40 Neutrophils (Manual) 36 % (40-80) L 12/07/16 06:40 Lymphocytes 40 % (20-50) 12/07/16 06:40 Monocytes 18 % (2-10) H 12/07/16 06:40 Eosinophils 5 % (0-5) 12/07/16 06:40 Atypical Lymphocytes 3 % 12/06/16 11:15 Platelet Estimate DECREASED PLATELETS (NORMAL) 12/07/16 06:40 Platelet Morphology NORMAL (NORMAL) 12/07/16 06:40 RBC Morph Micro Appear NORMAL (NORMAL) 12/07/16 06:40 Smear Path Review SEE BELOW 12/06/16 11:15 PT 9.7 SECONDS (9.5-11.5) 12/06/16 11:15 INR 0.98 (0.5-1.4) 12/06/16 11:15 PTT (Actin FS) 37.3 SECONDS (26.0-38.0) 12/06/16 11:15 Fibrinogen 251.0 mg/dL (200.0-400.0) 12/06/16 11:15 Sodium 139 mEq/L (136-145) 12/07/16 06:40 Potassium 3.4 mEq/L (3.5-5.1) L 12/07/16 06:40 Chloride 100 mEq/L (98-107) 12/07/16 06:40 Carbon Dioxide 29.4 mEq/L (21.0-31.0) 12/07/16 06:40 Anion Gap 13.0 (7.0-16.0) 12/07/16 06:40 BUN 32 mg/dL (7-25) H 12/07/16 06:40 Creatinine 6.2 mg/dL (0.7-1.3) H* 12/07/16 06:40 Est GFR ( Amer) TNP 12/07/16 06:40 Est GFR (Non-Af Amer) TNP 12/07/16 06:40 BUN/Creatinine Ratio 5.2 12/07/16 06:40 Glucose 91 mg/dL (70-105) 12/07/16 06:40 POC Glucose 134 MG/DL (70 - 105) H 12/07/16 16:35 Whole Bld Lactic Acid 2.34 mmol/L (0.60-2.00) H* 12/04/16 22:00 Calcium 8.2 mg/dL (8.6-10.3) L 12/07/16 06:40 Magnesium 2.1 mg/dL (1.9-2.7) 12/06/16 11:15 Total Bilirubin 0.6 mg/dL (0.3-1.0) 12/07/16 06:40 AST 34 U/L (13-39) 12/07/16 06:40 ALT 27 U/L (7-52) 12/07/16 06:40 Alkaline Phosphatase 144 U/L (34-104) H 12/07/16 06:40 Total Protein 6.2 gm/dL (6.0-8.3) 12/07/16 06:40 Albumin 2.7 gm/dL (4.2-5.5) L 12/07/16 06:40 Globulin 3.5 gm/dL 12/07/16 06:40 Albumin/Globulin Ratio 0.8 (1.0-1.8) L 12/07/16 06:40 Vitamin B12 981 pg/mL (211-946) H 12/06/16 11:15 Folic Acid >20.0 ng/mL (>3.0) 12/06/16 11:15 TSH 1.35 uIU/ml (0.34-5.60) 12/05/16 05:33 Urine Source [place] 12/04/16 19:40 Urine Color ORANGE 12/04/16 19:40 Urine Clarity SLIGHTLY CLOUDY (CLEAR) 12/04/16 19:40 Urine pH 7.0 12/04/16 19:40 Ur Specific [place] (1.005-1.030) 12/04/16 19:40 Urine Protein >300 mg/dL (NEGATIVE) H 12/04/16 19:40 Urine Glucose (UA) NEGATIVE mg/dL (NEGATIVE) 12/04/16 19:40 Urine Ketones NEGATIVE mg/dL (NEGATIVE) 12/04/16 19:40 Urine Blood LARGE (NEGATIVE) H 12/04/16 19:40 Urine Nitrate NEGATIVE (NEGATIVE) 12/04/16 19:40 Urine Bilirubin SMALL (NEGATIVE) H 12/04/16 19:40 Urine Urobilinogen 0.2 E.U./dL (0.2 - 1.0) 12/04/16 19:40 Ur Leukocyte Esterase LARGE (NEGATIVE) H 12/04/16 19:40 Urine RBC 50-100 /hpf (0-5) H 12/04/16 19:40 Urine WBC 25-50 /hpf (0-5) H 12/04/16 19:40 Ur Epithelial Cells FEW /lpf (FEW) 12/04/16 19:40 Urine Bacteria MANY /hpf (NONE SEEN) 12/04/16 19:40 Random Vancomycin 11.4 ug/mL (5.0-40.0) 12/06/16 11:15 RPR NONREACTIVE (NONREACTIVE) 12/05/16 05:33 Hepatitis A IgM Ab Negative (Negative) 12/06/16 11:15 Hep Bs Antigen Negative (Negative) 12/06/16 11:15 Hep Bs Antibody, Quant >1000.0 mIU/mL (Immunity>9.9) 12/06/16 11:15 Hep B Core Total Ab Negative (Negative) 12/06/16 11:15 Hep B Core IgM Ab Negative (Negative) 12/06/16 11:15 Hepatitis C Antibody >11.0 s/co ratio (0.0-0.9) H 12/06/16 11:15 HIV 1&2 Antibody Screen NEGATIVE (NEG) 12/05/16 05:33 - Physical Exam Vitals and I&O: Vital Signs Temp 98.9 F 12/07/16 16:00 Pulse 70 12/07/16 16:00 Resp 17 12/07/16 16:00 BP 123/55 12/07/16 16:00 Pulse Ox 96 12/07/16 16:00 Intake & Output 12/06/16 12/07/16 12/07/16 18:59 06:59 18:59 Intake Total 300 200 Output Total 20 Balance -20 300 200 Intake: Oral 300 200 Output: Urine 20 Other: # Voids 2 2 # Bowel Movements 1 Active Medications: Current Medications Acetaminophen (Tylenol) 650 mg PO Q6H PRN PRN Reason: TEMP >101.0 Acetaminophen/Hydrocodone Bitart ([place] 10 Mg/325 Mg) 1 tab PO BID PRN PRN Reason: MODERATE TO SEVERE PAIN Stop: 02/04/17 11:08 Aspirin (Ecotrin) 81 mg PO DAILY COUNTS [facility]CLUDE 234 BEDS AT [facility] Stop: 02/05/17 08:59 Last Admin: 12/07/16 08:17 Dose: 81 mg Colchicine (Colcrys) 0.6 mg PO DAILY [facility] Stop: 02/04/17 14:59 Last Admin: 12/07/16 08:17 Dose: 0.6 mg Ferrous Sulfate (Iron) 325 mg PO BID [facility] Stop: 02/04/17 16:59 Last Admin: 12/07/16 17:11 Dose: 325 mg Folic Acid (Folate) 1 mg PO DAILY [facility] Stop: 02/05/17 08:59 Last Admin: 12/07/16 08:16 Dose: 1 mg Gabapentin (Neurontin) 300 mg PO BID [facility] Stop: 02/04/17 16:59 Last Admin: 12/07/16 17:11 Dose: 300 mg Ceftriaxone Sodium 1 gm/ (Sodium Chloride) 50 mls @ 100 mls/hr IV Q24HR [facility] Stop: 02/02/17 22:14 Last Admin: 12/06/16 21:40 Dose: 100 mls/hr Meropenem 500 mg/ Sodium (Chloride) 100 mls @ 100 mls/hr IV DAILY [facility] Stop: 02/06/17 08:59 Insulin Aspart (Novolog Insulin Sliding Scale) 0 units SUBQ ACHS [facility] PRN Reason: Protocol Stop: 02/03/17 11:29 Last Admin: 12/07/16 16:49 Dose: Not Given Miscellaneous (Vte Chemical Prophylaxis Screen/ Admission) 1 ea PRN PRN PRN Reason: PROTOCOL Stop: 02/03/17 17:08 Miscellaneous (Doxercalciferol [Hectorol]) 1 mcg IV MWF [facility] Stop: 02/06/17 08:59 Miscellaneous (Clinical Monitoring) 1 ea PRN PRN PRN Reason: RENAL DOSING Stop: 02/04/17 14:32 Miscellaneous (Vancomycin Iv Per Pharmacy) 1 [facility] PRN PRN PRN Reason: VANCOMYCIN DOSING Stop: 02/05/17 17:10 Pantoprazole Sodium (Protonix) 40 mg PO DAILY [facility] Stop: 02/05/17 08:59 Last Admin: 12/07/16 08:16 Dose: 40 mg General: no acute distress, well developed, well nourished HEENT: atraumatic, normocephalic, PERRLA Neck: supple, no thyromegaly, no lymphadenopathy Cardiovascular: S1S2, regular Lungs: clear to auscultation bilaterally, clear to percussion Abdomen: soft, no tender, no distended, no mass Extremities: no cyanosis, no clubbing, no edema Neurological: awake, alert, oriented Skin: intact Infectious Disease Assmt/Plan - Assessment Assessment: 1. UTI - ESBL E coli. 2. Neutropenia. 3. Thrombocytopenia. 3. CKD 5 on HD. 4. DM2 5. HTN. - Plan Plan: Change antibiotics to meropenem. Neutropenic precaution.
[2016-12-07] MEDS: cefTRIAXone 1 GM in Sodium Chloride 0.9% 50 ML IV SCH ×2 (22:21→22:30)
[2016-12-08] MEDS: INSULIN ASPART SLIDING SCALE 100 UNITS/ML UNIT SUBQ SCH ×2 (06:33→11:56)
[2016-12-08 07:26] LABS: HEMATOCRIT 34.1 % (39.0-49.0); HEMOGLOBIN 11.8 gm/dL (12.6-17.4); MEAN CELL VOLUME 92.2 fl (80-99); MEAN CORPUSCULAR HEMOGLOBIN 31.8 pg (27.0-31.0); MEAN CORPUSCULAR HGB CONC 34.5 pg (28.0-36.0); MEAN PLATELET VOLUME 9.7 fl; PLATELET COUNT 58 Th/cmm (150-400); RED CELL DISTRIBUTION WIDTH 13.7 % (11.5-20.0)
[2016-12-08 07:49] LABS: ANION GAP 8.7 (7.0-16.0); BUN - UREA NITROGEN 41 mg/dL (7-25); BUN/CREATININE RATIO 5.2; CALCIUM SERUM 8.2 mg/dL (8.6-10.3); CARBON DIOXIDE 27.7 mEq/L (21.0-31.0); CHLORIDE 101 mEq/L (98-107); GLUCOSE 91 mg/dL (70-105); POTASSIUM SERUM 3.4 mEq/L (3.5-5.1); SODIUM SERUM 134 mEq/L (136-145)
[2016-12-08 07:58] LABS: WHITE BLOOD COUNT 2.1 Th/cmm (4.8-10.8)
[2016-12-08 08:10] LABS: CREATININE - SERUM 7.9 mg/dL (0.7-1.3)
[2016-12-08] MEDS: Ferrous Sulfate 325 MG TAB PO SCH (08:44)
[2016-12-08] MEDS: Pantoprazole 40 mg EC Tab PO SCH (08:44)
[2016-12-08] MEDS ORDERED: Meropenem 500 MG in Sodium Chloride 0.9% 100 ML IV SCH (09:00)
[2016-12-08] MEDS ORDERED: DOXERCALCIFEROL 1 MCG IV SCH (09:00)
[2016-12-08 09:08] LABS: BAND NEUTROPHILE 3 % (0-10); EOSINOPHIL 3 % (0-5); NEUTROPHILS 40 % (40-80); TOTAL CELLS COUNTED 100
[2016-12-08 09:09] LABS: PLATELET ESTIMATE DECREASED PLATELETS (NORMAL); PLATELET MORPHOLOGY GIANT PLATELETS SEEN (NORMAL)
[2016-12-13 01:54] LABS: HEPARIN-IND THROMBO. AB SEE REPORT
--- NOTE | 2016-12-23 18:15 | Discharge Summary ---
PRINCIPAL DIAGNOSES: 1. Infectious encephalopathy. 2. Complicated urinary tract infection. 3. Pancytopenia, rule out secondary to hepatitis C. 4. Extended-spectrum beta-lactamase Escherichia coli urinary tract infection 5. Hypertension. 6. End-stage renal disease, on hemodialysis. 7. Gout. 8. Degenerative joint disease. 9. Debility. BRIEF STATEMENT FOR THE REASON FOR ADMISSION: The patient is an 86-year-old resident of [facility] sent to Emergency Room for evaluation of altered mental status with blood in the urine. The patient was noted to have urinary tract infection and the patient was admitted. Please refer to my dictated medical H and P for further information. HOSPITAL COURSE: The patient was admitted to Med/Surg floor. IV antibiotic was started. Infectious Disease consultation requested. Appropriate home medicine was reconciliated as well. 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 The patient did have workup for leukopenia and thrombocytopenia. It turned out that the patient had a positive hepatitis C. The patient is too old to have treatment for hepatitis C at this time. The patient did have ESBL E. coli in the urine. IV antibiotic was recommended by Infectious Disease. It was decided that patient should receive additional treatment in [facility]. The patient was discharged to [facility] on 12/08/2016. At the time of discharge, all of his meds were reconciliated. The patient will be followed by myself and my nurse practitioner. Discharge instructions were discussed with RN. JOB# [id number]
== END 2016-12-08 12:45 | DRG 871 ==
LOC: ER 18:25 → MSI 22:10
PROVIDERS: ADMIT Internal Medicine; ATTEND Internal Medicine
PROC: 5A1D60Z (ICD-10-PCS; principal; 2016-12-06)
DX: A41.9 Sepsis, unspecified organism (principal); N18.6 End stage renal disease; G93.40 Encephalopathy, unspecified; D61.818 Other pancytopenia; I12.0 Hypertensive chronic kidney disease with stage 5 chronic kidney disease or end stage renal disease; F03.90 Unspecified dementia, unspecified severity, without behavioral disturbance, psychotic disturbance, mood disturbance, and anxiety; N39.0 Urinary tract infection, site not specified; E11.22 Type 2 diabetes mellitus with diabetic chronic kidney disease; K27.9 Peptic ulcer, site unspecified, unspecified as acute or chronic, without hemorrhage or perforation; M19.90 Unspecified osteoarthritis, unspecified site; M10.9 Gout, unspecified; K21.9 Gastro-esophageal reflux disease without esophagitis; I25.10 Atherosclerotic heart disease of native coronary artery without angina pectoris; D73.1 Hypersplenism; E11.42 Type 2 diabetes mellitus with diabetic polyneuropathy; G89.4 Chronic pain syndrome; M48.00 Spinal stenosis, site unspecified; N40.0 Benign prostatic hyperplasia without lower urinary tract symptoms; K74.60 Unspecified cirrhosis of liver; B96.20 Unspecified Escherichia coli [E. coli] as the cause of diseases classified elsewhere; Z99.2 Dependence on renal dialysis
CPT/HCPCS: 36415-UA; 70450-TC; 71010-TC; 76700-TC; 80048-TC; 80053-TC; 80074-90; 80202-TC; 81001-TC; 82607-90; 82746-90; 82948-90; 83605; 83735-TC; 84443-TC; 85007-TC; 85027-TC; 85384-TC; 85610-TC; 85730-TC; 86022-90; 86592-TC; 86703-TC; 86704-90; 86706-90; 86803-90; 87086-90; 87340-90; 87341-90; 87521-90; 90799; 90937; 93005; 97530; J0696; J1815; J2185; J2543; J3370; J7040; X3904; Z7610

== ENCOUNTER 2018-04-11 21:18 | Inpatient (IN) | payer MEDICARE, MEDICAID ==
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
[2018-04-11 22:24] LABS: EOSINOPHILE ABSOLUTE 0.1 Th/cmm (0.1-0.4); MONOCYTE ABSOLUTE 0.6 Th/cmm (0.3-1.0)
[2018-04-11 22:33] LABS: % BASOPHILS 0.5 % (0.0-2.0); % EOSINOPHILS 0.8 % (0.0-5.0); % MONOCYTES 8.3 % (2.0-10.0); % NEUTROPHILS 74.4 % (40.0-80.0); HEMATOCRIT 31.8 % (41.0-60); HEMOGLOBIN 11.2 gm/dL (12-16); LYMPHOCYTE ABSOLUTE 1.2 Th/cmm (1.5-3.0); MEAN CELL VOLUME 95.8 fl (80-99); MEAN CORPUSCULAR HEMOGLOBIN 33.9 pg (27.0-31.0); MEAN CORPUSCULAR HGB CONC 35.3 pg (28.0-36.0); MEAN PLATELET VOLUME 7.6 fl; NEUTROPHILE ABSOLUTE 5.8 Th/cmm (1.8-8.0); RED BLOOD COUNT 3.32 Mil/cmm (3.80-5.80); RED CELL DISTRIBUTION WIDTH 14.3 % (11.5-20.0); WHITE BLOOD COUNT 7.7 Th/cmm (4.8-10.8)
[2018-04-11 22:34] LABS: PLATELET COUNT 103 Th/cmm (150-400)
[2018-04-11 22:40] LABS: ALB/GLOB RATIO 0.8 (1.0-1.8); ALKALINE PHOSPHATASE 104 U/L (34-104); ANION GAP 15.9 (7.0-16.0); BILIRUBIN,TOTAL 0.7 mg/dL (0.3-1.0); BUN - UREA NITROGEN 48 mg/dL (7-25); CALCIUM SERUM 8.6 mg/dL (8.6-10.3); CARBON DIOXIDE 29.7 mEq/L (21.0-31.0); CHLORIDE 94 mEq/L (98-107); CHOLESTEROL 110 mg/dL (<200); GLUCOSE 173 mg/dL (70-105); HDL -HIGH DENSITY LIPOPROTEIN 37 mg/dL (23-92); POTASSIUM SERUM 4.6 mEq/L (3.5-5.1); SGOT 22 U/L (13-39); SGPT/ALT 27 U/L (7-52); SODIUM SERUM 135 mEq/L (136-145); TOTAL PROTEIN,SERUM 6.6 gm/dL (6.0-8.3); TRIGLYCERIDES 53 mg/dL (<150)
[2018-04-11 22:44] LABS: CREATININE - SERUM 6.1 mg/dL (0.7-1.3)
[2018-04-12] MEDS ORDERED: DOXERCALCIFEROL 1 MCG PO SCH (09:00)
[2018-04-12] MEDS: Polyvinyl Alcohol Ophth Soln 15 mL Bottle EACH EYE SCH ×4 (10:24→21:13)
--- NOTE | 2018-04-12 11:00 | Diagnostic Imaging Report ---
Head CT without intravenous contrast Indication: Altered level of consciousness Comparison: 12/05/2016 Technique: Axial images were obtained from the vertex to the skull base without IV contrast. Coronal reconstructions were made. Total DLP: 634, [id number] FINDINGS: Images of the brain obtained without contrast demonstrate no evidence of an acute hemorrhage. Atrophy is noted. Mild white matter disease is noted. The ventricles and basal cisterns are patent. No Mass effect or mid line shift. Punctate calcification of the basal ganglia and bilateral cerebellar regions are noted. Atherosclerosis is noted. No evidence of a skull fracture or focal soft tissue swelling. There is mucosal thickening in the paranasal sinuses greatest within the right maxillary sinus. IMPRESSION: No evidence of acute intracranial hemorrhage. Atrophy. Mild supratentorial white matter disease which is nonspecific and may be due to chronic microvessel ischemia. [place] Atherosclerotic vascular disease. Mucosal thickening in the paranasal sinuses greatest within the right maxillary sinus.
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
[2018-04-12 21:39] LABS: A1C % 5.2 % (4.0-6.0)
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
[2018-04-13] MEDS: Polyvinyl Alcohol Ophth Soln 15 mL Bottle EACH EYE SCH ×3 (09:45→21:32)
--- NOTE | 2018-04-13 12:17 | General Progress Note ---
Subjective - Review of Systems Service Date: 04/13/18 Subjective: IM OK Objective - Results Result Diagrams: 04/11/18 22:10 04/11/18 22:10 Recent Labs: Laboratory Last Values WBC 7.7 Th/cmm (4.8-10.8) 04/11/18 22:10 RBC 3.32 Mil/cmm (3.80-5.80) L 04/11/18 22:10 Hgb 11.2 gm/dL (12-16) L 04/11/18 22:10 Hct 31.8 % (41.0-60) L 04/11/18 22:10 MCV 95.8 fl (80-99) 04/11/18 22:10 MCH 33.9 pg (27.0-31.0) H 04/11/18 22:10 MCHC Differential 35.3 pg (28.0-36.0) 04/11/18 22:10 RDW 14.3 % (11.5-20.0) 04/11/18 22:10 Plt Count 103 Th/cmm (150-400) L 04/11/18 22:10 MPV 7.6 fl 04/11/18 22:10 Neutrophils % 74.4 % (40.0-80.0) 04/11/18 22:10 Lymphocytes % 16.0 % (20.0-50.0) L 04/11/18 22:10 Monocytes % 8.3 % (2.0-10.0) 04/11/18 22:10 Eosinophils % 0.8 % (0.0-5.0) 04/11/18 22:10 Basophils % 0.5 % (0.0-2.0) 04/11/18 22:10 Sodium 135 mEq/L (136-145) L 04/11/18 22:10 Potassium 4.6 mEq/L (3.5-5.1) 04/11/18 22:10 Chloride 94 mEq/L (98-107) L 04/11/18 22:10 Carbon Dioxide 29.7 mEq/L (21.0-31.0) 04/11/18 22:10 Anion Gap 15.9 (7.0-16.0) 04/11/18 22:10 BUN 48 mg/dL (7-25) H 04/11/18 22:10 Creatinine 6.1 mg/dL (0.7-1.3) H* 04/11/18 22:10 Est GFR ( Amer) TNP 04/11/18 22:10 Est GFR (Non-Af Amer) TNP 04/11/18 22:10 BUN/Creatinine Ratio 7.9 04/11/18 22:10 Glucose 173 mg/dL (70-105) H 04/11/18 22:10 Hemoglobin A1c % 5.2 % (4.0-6.0) 04/11/18 22:10 Calcium 8.6 mg/dL (8.6-10.3) 04/11/18 22:10 Total Bilirubin 0.7 mg/dL (0.3-1.0) 04/11/18 22:10 AST 22 U/L (13-39) 04/11/18 22:10 ALT 27 U/L (7-52) 04/11/18 22:10 Alkaline Phosphatase 104 U/L (34-104) 04/11/18 22:10 Total Protein 6.6 gm/dL (6.0-8.3) 04/11/18 22:10 Albumin 3.0 gm/dL (4.2-5.5) L 04/11/18 22:10 Globulin 3.6 gm/dL 04/11/18 22:10 Albumin/Globulin Ratio 0.8 (1.0-1.8) L 04/11/18 22:10 Triglycerides 53 mg/dL (<150) 04/11/18 22:10 Cholesterol 110 mg/dL (<200) 04/11/18 22:10 LDL Cholesterol Direct 53 mg/dL (75-193) L 04/11/18 22:10 HDL Cholesterol 37 mg/dL (23-92) 04/11/18 22:10 TSH 1.08 uIU/ml (0.34-5.60) 04/11/18 22:10 RPR NONREACTIVE (NONREACTIVE) 04/11/18 22:10 - Physical Exam Vitals and I&O: Vital Signs Temp 96.3 F 04/13/18 12:08 Pulse 78 04/13/18 12:08 Resp 19 04/13/18 12:08 BP 127/75 04/13/18 12:08 Pulse Ox 95 06/09/18 12:08 Intake & Output 04/12/1818 18 18:59 06:59 18:59 Intake Total 1200 Output Total 0 Balance 1200 0 Weight (lbs) 71.758 kg 69.031 kg Intake: Oral 1200 Output: Urine 0 Other: # Voids 0 0 # Bowel Movements 0 0 Stool Characteristics Soft Soft Formed Formed Weight Source Bedscale Bedscale Active Medications: Current Medications Acetaminophen (Tylenol) 650 mg PO Q6H PRN PRN Reason: TEMP >101.0 Artificial Tears (Artificial Tears Ophth Soln) 1 drop EACH EYE QID [facility] Stop: 06/11/18 08:59 Last Admin: 04/13/18 09:45 Dose: Not Given Aspirin (Ecotrin) 81 mg PO DAILY [facility] Stop: 06/11/18 08:59 Last Admin: 04/13/18 09:45 Dose: Not Given Calcitriol (Rocaltrol) 0.25 mcg PO DAILY [facility] Stop: 06/11/18 08:59 Last Admin: 04/13/18 09:45 Dose: Not Given Calcium Acetate (Phoslo) 2,001 mg PO TID [facility] Stop: 06/11/18 08:59 Last Admin: 04/13/18 09:45 Dose: Not Given Cilostazol (Pletal) 100 mg PO HS [facility] Stop: 06/11/18 20:59 Last Admin: 04/12/18 21:13 Dose: Not Given Colchicine (Colcrys) 0.6 mg PO HS [facility] Stop: 06/11/18 20:59 Last Admin: 04/12/18 21:13 Dose: Not Given Donepezil HCl (Aricept) 10 mg PO HS [facility] Stop: 06/11/18 20:59 Last Admin: 04/12/18 21:13 Dose: Not Given Memantine (Namenda) 5 mg PO DAILY [facility] Stop: 06/11/18 08:59 Last Admin: 04/13/18 09:45 Dose: Not Given Quetiapine Fumarate (Seroquel) 25 mg PO BID PRN; Protocol PRN Reason: Agitation Stop: 06/11/18 08:59 General: Alert, Oriented x3, Cooperative, No acute distress, Mild distress, Moderate distress, Severe distress, Other HEENT: Atraumatic, PERRLA, 6, EOMI, 7, Mucous membr. moist/pink, Other, 8, 9, 10 , 11, 12, 13, 14, 15, 16, 22, 17, 23, 18, 24, 19, 20, 21 Neck: Supple, JVD, Thyromegaly, +2 carotid pulse wo bruit, LAD, Other Cardiovascular: Regular rate, Normal S1, Normal S2 Lungs: Clear to auscultation Abdomen: Soft Extremities: no Clubbing, no Cyanosis, no Edema, no Pulses, no Tender, no Other - Procedures Procedures: Procedures Procedure Code Date PERFORMANCE OF URINARY FILTRATION, MULTIPLE [id number] 12/04/16 Assessment/Plan - Problem List Patient Problems: All Active Problems Diabetes (Acute) E11.9 ESRD (end stage renal disease) (Acute) Hypertension (Acute) I10 - Assessment Assessment: ESRD ON HD MWF HTN CONTROLLED DM ON S/S INSULIN - Plan Plan: AMS BETTER [facility]
--- NOTE | 2018-04-13 12:22 | Internal Medicine Prog Note ---
Internal Medicine Subjective - Subjective Service Date: 04/13/18 Patient seen and examined:: with staff, chart reviewed Patient is:: awake, interactive, in wheelchair, talking Patient Complaints of:: other (Don't want to take meds.) Per staff patient has:: noncompliant, refusing care, refusing labs Internal Medicine Objective - Results Result Diagrams: 04/11/18 22:10 04/11/18 22:10 Recent Labs: Laboratory Last Values WBC 7.7 Th/cmm (4.8-10.8) 04/11/18 22:10 RBC 3.32 Mil/cmm (3.80-5.80) L 04/11/18 22:10 Hgb 11.2 gm/dL (12-16) L 04/11/18 22:10 Hct 31.8 % (41.0-60) L 04/11/18 22:10 MCV 95.8 fl (80-99) 04/11/18 22:10 MCH 33.9 pg (27.0-31.0) H 04/11/18 22:10 MCHC Differential 35.3 pg (28.0-36.0) 04/11/18 22:10 RDW 14.3 % (11.5-20.0) 04/11/18 22:10 Plt Count 103 Th/cmm (150-400) L 04/11/18 22:10 MPV 7.6 fl 04/11/18 22:10 Neutrophils % 74.4 % (40.0-80.0) 04/11/18 22:10 Lymphocytes % 16.0 % (20.0-50.0) L 04/11/18 22:10 Monocytes % 8.3 % (2.0-10.0) 04/11/18 22:10 Eosinophils % 0.8 % (0.0-5.0) 04/11/18 22:10 Basophils % 0.5 % (0.0-2.0) 04/11/18 22:10 Sodium 135 mEq/L (136-145) L 04/11/18 22:10 Potassium 4.6 mEq/L (3.5-5.1) 04/11/18 22:10 Chloride 94 mEq/L (98-107) L 04/11/18 22:10 Carbon Dioxide 29.7 mEq/L (21.0-31.0) 04/11/18 22:10 Anion Gap 15.9 (7.0-16.0) 04/11/18 22:10 BUN 48 mg/dL (7-25) H 04/11/18 22:10 Creatinine 6.1 mg/dL (0.7-1.3) H* 04/11/18 22:10 Est GFR ( Amer) TNP 04/11/18 22:10 Est GFR (Non-Af Amer) TNP 04/11/18 22:10 BUN/Creatinine Ratio 7.9 04/11/18 22:10 Glucose 173 mg/dL (70-105) H 04/11/18 22:10 Hemoglobin A1c % 5.2 % (4.0-6.0) 04/11/18 22:10 Calcium 8.6 mg/dL (8.6-10.3) 04/11/18 22:10 Total Bilirubin 0.7 mg/dL (0.3-1.0) 04/11/18 22:10 AST 22 U/L (13-39) 04/11/18 22:10 ALT 27 U/L (7-52) 04/11/18 22:10 Alkaline Phosphatase 104 U/L (34-104) 04/11/18 22:10 Total Protein 6.6 gm/dL (6.0-8.3) 04/11/18 22:10 Albumin 3.0 gm/dL (4.2-5.5) L 04/11/18 22:10 Globulin 3.6 gm/dL 04/11/18 22:10 Albumin/Globulin Ratio 0.8 (1.0-1.8) L 04/11/18 22:10 Triglycerides 53 mg/dL (<150) 04/11/18 22:10 Cholesterol 110 mg/dL (<200) 04/11/18 22:10 LDL Cholesterol Direct 53 mg/dL (75-193) L 04/11/18 22:10 HDL Cholesterol 37 mg/dL (23-92) 04/11/18 22:10 TSH 1.08 uIU/ml (0.34-5.60) 04/11/18 22:10 RPR NONREACTIVE (NONREACTIVE) 04/11/18 22:10 - Physical Exam Vitals and I&O: Vital Signs Temp 96.3 F 04/13/18 12:08 Pulse 78 04/13/18 12:08 Resp 19 04/13/18 12:08 BP 127/75 04/13/18 12:08 Pulse Ox 95 04/13/18 12:08 Intake & Output 04/12/18 04/13/18 04/13/18 18:59 06:59 18:59 Intake Total 1200 Output Total 0 Balance 1200 0 Weight (lbs) 71.758 kg 69.031 kg Intake: Oral 1200 Output: Urine 0 Other: # Voids 0 0 # Bowel Movements 0 0 Stool Characteristics Soft Soft Formed Formed Weight Source Bedscale Bedscale Active Medications: Current Medications Acetaminophen (Tylenol) 650 mg PO Q6H PRN PRN Reason: TEMP >101.0 Artificial Tears (Artificial Tears Ophth Soln) 1 drop EACH EYE QID [facility] Stop: 06/11/18 08:59 Last Admin: 04/13/18 09:45 Dose: Not Given Aspirin (Ecotrin) 81 mg PO DAILY [facility] Stop: 06/11/18 08:59 Last Admin: 04/13/18 09:45 Dose: Not Given Calcitriol (Rocaltrol) 0.25 mcg PO DAILY [facility] Stop: 06/11/18 08:59 Last Admin: 04/13/18 09:45 Dose: Not Given Calcium Acetate (Phoslo) 2,001 mg PO TID [facility] Stop: 06/11/18 08:59 Last Admin: 04/13/18 09:45 Dose: Not Given Cilostazol (Pletal) 100 mg PO HS [facility] Stop: 06/11/18 20:59 Last Admin: 04/12/18 21:13 Dose: Not Given Colchicine (Colcrys) 0.6 mg PO HS [facility] Stop: 06/11/18 20:59 Last Admin: 04/12/18 21:13 Dose: Not Given Donepezil HCl (Aricept) 10 mg PO HS [facility] Stop: 06/11/18 20:59 Last Admin: 04/12/18 21:13 Dose: Not Given Memantine (Namenda) 5 mg PO DAILY [facility] Stop: 06/11/18 08:59 Last Admin: 04/13/18 09:45 Dose: Not Given Quetiapine Fumarate (Seroquel) 25 mg PO BID PRN; Protocol PRN Reason: Agitation Stop: 06/11/18 08:59 General: alert, NAD HEENT: NC/AT, PERRLA, EOMI, anicteric sclerae, throat clear Neck: Supple, No JVD, No thyromegaly - Procedures Procedures: Procedures Procedure Code Date PERFORMANCE OF URINARY FILTRATION, MULTIPLE [id number] 12/04/16 Internal Medicine Assmt/Plan - Assessment Assessment: Agitation. Dementia Encephalopathy ESRD on HD. Hypertension DJD Hepatitis C Fall risk Debility Refusing care. - Plan Plan: Psych meds and follow up. Adjust psych meds. Hemodialysis General nursing care Fall precautions. Monitor lab Continue current care follow consultants recommendations. Symptoms control. Discussed with staff.
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
[2018-04-14] MEDS: Polyvinyl Alcohol Ophth Soln 15 mL Bottle EACH EYE SCH ×4 (10:09→20:17)
--- NOTE | 2018-04-14 12:24 | General Progress Note ---
Subjective - Review of Systems Service Date: 04/14/18 Subjective: IM OK Objective - Results Result Diagrams: 04/11/18 22:10 04/11/18 22:10 Recent Labs: Laboratory Last Values WBC 7.7 Th/cmm (4.8-10.8) 04/11/18 22:10 RBC 3.32 Mil/cmm (3.80-5.80) L 04/11/18 22:10 Hgb 11.2 gm/dL (12-16) L 04/11/18 22:10 Hct 31.8 % (41.0-60) L 04/11/18 22:10 MCV 95.8 fl (80-99) 04/11/18 22:10 MCH 33.9 pg (27.0-31.0) H 04/11/18 22:10 MCHC Differential 35.3 pg (28.0-36.0) 04/11/18 22:10 RDW 14.3 % (11.5-20.0) 04/11/18 22:10 Plt Count 103 Th/cmm (150-400) L 04/11/18 22:10 MPV 7.6 fl 04/11/18 22:10 Neutrophils % 74.4 % (40.0-80.0) 04/11/18 22:10 Lymphocytes % 16.0 % (20.0-50.0) L 04/11/18 22:10 Monocytes % 8.3 % (2.0-10.0) 04/11/18 22:10 Eosinophils % 0.8 % (0.0-5.0) 04/11/18 22:10 Basophils % 0.5 % (0.0-2.0) 04/11/18 22:10 Sodium 135 mEq/L (136-145) L 04/11/18 22:10 Potassium 4.6 mEq/L (3.5-5.1) 04/11/18 22:10 Chloride 94 mEq/L (98-107) L 04/11/18 22:10 Carbon Dioxide 29.7 mEq/L (21.0-31.0) 04/11/18 22:10 Anion Gap 15.9 (7.0-16.0) 04/11/18 22:10 BUN 48 mg/dL (7-25) H 04/11/18 22:10 Creatinine 6.1 mg/dL (0.7-1.3) H* 04/11/18 22:10 Est GFR ( Amer) TNP 04/11/18 22:10 Est GFR (Non-Af Amer) TNP 04/11/18 22:10 BUN/Creatinine Ratio 7.9 04/11/18 22:10 Glucose 173 mg/dL (70-105) H 04/11/18 22:10 Hemoglobin A1c % 5.2 % (4.0-6.0) 04/11/18 22:10 Calcium 8.6 mg/dL (8.6-10.3) 04/11/18 22:10 Total Bilirubin 0.7 mg/dL (0.3-1.0) 04/11/18 22:10 AST 22 U/L (13-39) 04/11/18 22:10 ALT 27 U/L (7-52) 04/11/18 22:10 Alkaline Phosphatase 104 U/L (34-104) 04/11/18 22:10 Total Protein 6.6 gm/dL (6.0-8.3) 04/11/18 22:10 Albumin 3.0 gm/dL (4.2-5.5) L 04/11/18 22:10 Globulin 3.6 gm/dL 04/11/18 22:10 Albumin/Globulin Ratio 0.8 (1.0-1.8) L 04/11/18 22:10 Triglycerides 53 mg/dL (<150) 04/11/18 22:10 Cholesterol 110 mg/dL (<200) 04/11/18 22:10 LDL Cholesterol Direct 53 mg/dL (75-193) L 04/11/18 22:10 HDL Cholesterol 37 mg/dL (23-92) 04/11/18 22:10 TSH 1.08 uIU/ml (0.34-5.60) 04/11/18 22:10 RPR NONREACTIVE (NONREACTIVE) 04/11/18 22:10 - Physical Exam Vitals and I&O: Vital Signs Temp 98.2 F 04/14/18 11:50 Pulse 66 04/14/18 11:50 Resp 17 04/14/18 11:50 BP 135/41 04/14/18 11:50 Pulse Ox 98 06/10/18 11:50 Intake & Output 04/13/18 04/14/18 04/14/18 18:59 06:59 18:59 Intake Total 550 100 Balance 550 100 Weight (lbs) 68.538 kg 67.614 kg 67.614 kg Intake: Oral 550 100 Other: # Voids 0 0 # Bowel Movements 2 0 Weight Source Bedscale Bedscale Bedscale Active Medications: Current Medications Acetaminophen (Tylenol) 650 mg PO Q6H PRN PRN Reason: TEMP >101.0 Last Admin: 04/14/18 00:31 Dose: 650 mg Artificial Tears (Artificial Tears Ophth Soln) 1 drop EACH EYE QID [facility] Stop: 06/11/18 08:59 Last Admin: 04/14/18 10:09 Dose: 1 drop Aspirin (Ecotrin) 81 mg PO DAILY [facility] Stop: 06/11/18 08:59 Last Admin: 04/14/18 09:59 Dose: 81 mg Calcitriol (Rocaltrol) 0.25 mcg PO DAILY [facility] Stop: 06/11/18 08:59 Last Admin: 04/14/18 10:00 Dose: 0.25 mcg Calcium Acetate (Phoslo) 2,001 mg PO TID [facility] Stop: 06/11/18 08:59 Last Admin: 04/14/18 09:58 Dose: 2,001 mg Cilostazol (Pletal) 100 mg PO [facility] Stop: 06/11/18 20:59 Last Admin: 04/13/18 21:30 Dose: Not Given Colchicine (Colcrys) 0.6 mg PO HS [facility] Stop: 06/11/18 20:59 Last Admin: 04/13/18 21:30 Dose: Not Given Donepezil HCl (Aricept) 10 mg PO [facility] Stop: 06/11/18 20:59 Last Admin: 04/13/18 21:30 Dose: Not Given Memantine (Namenda) 5 mg PO DAILY [facility] Stop: 06/11/18 08:59 Last Admin: 04/14/18 09:59 Dose: 5 mg Quetiapine Fumarate (Seroquel) 25 mg PO BID PRN; Protocol PRN Reason: Agitation Stop: 06/11/18 08:59 General: Alert, Oriented x3, Cooperative, No acute distress, Mild distress, Moderate distress, Severe distress, Other HEENT: Atraumatic, PERRLA, 6, EOMI, 7, Mucous membr. moist/pink, Other, 8, 9, 10 , 11, 12, 13, 14, 15, 16, 22, 17, 23, 18, 24, 19, 20, 21 Neck: Supple, JVD, Thyromegaly, +2 carotid pulse wo bruit, LAD, Other Cardiovascular: Regular rate, Normal S1, Normal S2 Lungs: Clear to auscultation Abdomen: Soft Extremities: no Clubbing, no Cyanosis, no Edema, no Pulses, no Tender, no Other - Procedures Procedures: Procedures Procedure Code Date PERFORMANCE OF URINARY FILTRATION, MULTIPLE [id number] 12/04/16 Assessment/Plan - Problem List Patient Problems: All Active Problems Diabetes (Acute) E11.9 ESRD (end stage renal disease) (Acute) Hypertension (Acute) I10 - Assessment Assessment: ESRD ON HD MWF HTN CONTROLLED DM ON S/S INSULIN - Plan Plan: AMS BETTER HD IN AM PER SCHEDULE
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
[2018-04-15 06:27] LABS: URINE MICROSCOPIC INDICATED? YES; URINE SOURCE RANDOM
[2018-04-15 06:40] LABS: URINE BILIRUBIN NEGATIVE (NEGATIVE); URINE BLOOD MODERATE (NEGATIVE); URINE GLUCOSE (UA) NEGATIVE (NEGATIVE); URINE KETONE NEGATIVE (NEGATIVE); URINE LEUKOCYTE ESTERASE LARGE (NEGATIVE); URINE NITRATE NEGATIVE (NEGATIVE); URINE PH 8.5 (4.6 - 8.0); URINE PROTEIN 100 mg/dL (NEGATIVE); URINE UROBILINOGEN 0.2 E.U./dL (0.2 - 1.0)
[2018-04-15 06:43] LABS: URINE CLARITY CLOUDY (CLEAR); URINE COLOR YELLOW
[2018-04-15 06:47] LABS: URINE BACTERIA MODERATE /hpf (NONE SEEN); URINE EPITHELIAL CELLS FEW /lpf (FEW); URINE WBC >100 /hpf (0-5)
[2018-04-15 07:08] LABS: ALB/GLOB RATIO 0.8 (1.0-1.8); ALBUMIN 2.9 gm/dL (4.2-5.5); ALKALINE PHOSPHATASE 105 U/L (34-104); ANION GAP 18.7 (7.0-16.0); BILIRUBIN,TOTAL 0.9 mg/dL (0.3-1.0); BUN - UREA NITROGEN 57 mg/dL (7-25); CALCIUM SERUM 8.2 mg/dL (8.6-10.3); CARBON DIOXIDE 24.4 mEq/L (21.0-31.0); CHLORIDE 98 mEq/L (98-107); GLUCOSE 95 mg/dL (70-105); POTASSIUM SERUM 5.1 mEq/L (3.5-5.1); SGOT 16 U/L (13-39); SGPT/ALT 23 U/L (7-52); SODIUM SERUM 136 mEq/L (136-145); TOTAL PROTEIN,SERUM 6.7 gm/dL (6.0-8.3)
[2018-04-15 07:09] LABS: % BASOPHILS 0.7 % (0.0-2.0); % EOSINOPHILS 3.2 % (0.0-5.0); % LYMPHOCYTES 19.7 % (20.0-50.0); % MONOCYTES 8.6 % (2.0-10.0); % NEUTROPHILS 67.8 % (40.0-80.0); EOSINOPHILE ABSOLUTE 0.2 Th/cmm (0.1-0.4); HEMATOCRIT 32.2 % (41.0-60); HEMOGLOBIN 11.3 gm/dL (12-16); LYMPHOCYTE ABSOLUTE 1.4 Th/cmm (1.5-3.0); MEAN CELL VOLUME 96.7 fl (80-99); MEAN CORPUSCULAR HEMOGLOBIN 33.9 pg (27.0-31.0); MEAN PLATELET VOLUME 8.3 fl; MONOCYTE ABSOLUTE 0.6 Th/cmm (0.3-1.0); NEUTROPHILE ABSOLUTE 4.7 Th/cmm (1.8-8.0); PLATELET COUNT 153 Th/cmm (150-400); RED BLOOD COUNT 3.33 Mil/cmm (3.80-5.80); WHITE BLOOD COUNT 6.9 Th/cmm (4.8-10.8)
[2018-04-15 07:26] LABS: CREATININE - SERUM 8.5 mg/dL (0.7-1.3)
[2018-04-15] MEDS: Polyvinyl Alcohol Ophth Soln 15 mL Bottle EACH EYE SCH ×4 (09:22→21:57)
--- NOTE | 2018-04-15 10:19 | Progress Notes ---
DATE: IDENTIFICATION: An 87-year-old male. SUBJECTIVE: The patient seen and examined. The patient is lying in the bed. The patient is easy to awake. Upon further questioning to the patient, he has no new event. The patient remained hemodynamically stable. OBJECTIVE: VITAL SIGNS: Temperature 98.6, pulse is 60, respiratory rate 18, blood pressure 127/46. HEENT: No facial asymmetry. NECK: Supple, no JVD. HEART: Irregular. CHEST AND LUNGS: Equal in expansion. No expiratory wheezing. ABDOMEN: Soft. No guarding, no rigidity. Bowel sounds are present. No palpable mass. EXTREMITIES: No edema. AV graft on the left upper extremity noted. CLINICAL IMPRESSION: 1. Agitation. 2. Dementia. 3. Encephalopathy. 4. End-stage kidney disease and hemolysis. 5. Hypertension. 6. Degenerative joint disease. 7. Hepatitis C. 8. Fall risk. PLAN: 1. Psych medication and followup. 2. Hemodialysis. 3. General nursing care. 4. Fall precautions. 5. Monitor labs. 6. Follow lab. 7. Follow consult and recommendation. 8. Care plan reviewed and discussed with staff. JOB# [id number]
[2018-04-15] MEDS: cefTRIAXone 1 GM in Sodium Chloride 0.9% 50 ML IV SCH (12:06)
[2018-04-15] MEDS: Lactulose 10 Gm/15 mL 30mL UDC PO SCH (16:46)
--- NOTE | 2018-04-16 03:39 | Progress Notes ---
DATE: 04/15/2018 SUBJECTIVE: The patient seen and examined. The patient continues to refuse medications as well as dialysis. After explanation, patient is agreeable to proceed with dialysis. OBJECTIVE: GENERAL: The patient lying comfortably. Denies any chest pain or shortness of breath. VITAL SIGNS: Temperature 98.6, pulse 71, respiratory rate 18, blood pressure 150/60. HEENT: No facial asymmetry. NECK: Supple, no JVD. HEART: Both heart sounds are regular. CHEST: Equal in expansion, no expiratory wheezing. ABDOMEN: Soft. No guarding or rigidity. Bowel sounds are present. No palpable mass. EXTREMITIES: No edema. AV graft on the left upper extremity noted. AVAILABLE DIAGNOSTIC DATA: BUN and creatinine 57 and 8.5, hemoglobin 11.3, ammonia of 63. Urinalysis remarkable for moderate amount of blood, large leukocyte esterase, more than 100 WBC. CLINICAL IMPRESSION: 1. Encephalopathy. 2. Refusal of medications. 3. Agitation. 4. End-stage kidney disease, hemodialysis. 5. Dementia. 6. Peripheral vascular disease. 7. Hepatitis C. 8. Degenerative joint disease. PLAN: Recommended at this time to start IV antibiotic in the view of urinary tract infection with Rocephin. The patient is to have dialysis, have psychiatrist to follow, adjust her psych medications. Hopefully, the patient will be more receptive. Once the patient does have elevated ammonia we will give some lactulose as well. The patient will have followup lab and will follow consult recommendations. Care plan has been reviewed and discussed with staff. JOB# [id number]
--- NOTE | 2018-04-16 07:03 | Progress Notes ---
DATE: 04/15/2018 An 87-year-old male dialysis dependent, still confused, disoriented. The patient was seen today with translation services. The patient was apparently refusing dialysis, but eventually accepted dialysis, states it makes him feel itchy and he does not like some of the discomfort, it causes to his arm. The patient is eating fairly well, attesting to okay sleep. The patient understands that if he does not have dialysis that he may and says that he is okay with this; however, he is not actively suicidal. He has no intent or plan of harming himself. ASSESSMENT: The patient is calm, no agitation, still disoriented, concerns for his symptoms given the refusal of dialysis, but he is accepting dialysis. He remains confused. He states he does not care if he dies, if he refused dialysis, but not actively suicidal. RECOMMENDATIONS AND PLAN: I did speak with Dr. Damon rather expressed my concerns. The patient is also radically refusing medications. Apparently daughter involved. The patient with history of combative behaviors at the group home. We will continue to monitor, reach out to family. JOB# [id number]
--- NOTE | 2018-04-16 07:18 | Progress Notes ---
DATE: 04/15/2018 [facility], room 18, bed 1. SUBJECTIVE: The patient is conscious, seems to be alert, but confused at times, on dialysis right now through left upper extremity AV fistula. The patient is tolerating dialysis well. The patient denies any vomiting, diarrhea, chest pain or shortness of breath. According to nursing staff, the patient is refusing to take medication today. OBJECTIVE: VITAL SIGNS: Temperature 98.6, pulse 71, blood pressure 149/59. Yesterday's intake 650. HEART: Regular. LUNGS: Good air entry. ABDOMEN: Soft. EXTREMITIES: No edema. LABORATORY DATA: Hemoglobin 11.3, WBC 6.9, creatinine 8.5, potassium 5.1, calcium 8.2, ammonia 63, elevated. TSH normal. ASSESSMENT: 1. Chronic kidney disease 5, on chronic hemodialysis Sunday, Sunday, and Sunday. 2. Hypertension. 3. Diabetes mellitus. 4. Anemia. 5. Hepatic encephalopathy. 6. Noncompliance. PLAN: 1. Hemodialysis today. 2. Check serum phosphorus, PTH, TSH in the morning. Continue the patient on aspirin, Tylenol, Rocaltrol, PhosLo, Pletal, Aricept and lactulose. Discussed with Dr. Gonsalves and the patient at length. Discussed with nursing staff at length. JOB# [id number]
[2018-04-16] MEDS ORDERED: Probiotic Screen MC PRN (08:30)
[2018-04-16] MEDS ORDERED: Lactobacillus Rhamnosus GG 15 Billion CFU CAP.SPRINK PO SCH (09:00)
[2018-04-16] MEDS: Lactulose 10 Gm/15 mL 30mL UDC PO SCH ×2 (09:06→16:43)
[2018-04-16] MEDS: Polyvinyl Alcohol Ophth Soln 15 mL Bottle EACH EYE SCH ×2 (09:07→12:33)
[2018-04-16] MEDS: cefTRIAXone 1 GM in Sodium Chloride 0.9% 50 ML IV SCH (11:02)
--- NOTE | 2018-04-16 23:57 | Progress Notes ---
DATE: 04/16/2018 SUBJECTIVE: The patient seen and examined. The patient is lying comfortably. Discussed with psychiatrist about a definite treatment plan. The patient will receive further psychiatric care as per psychiatrist. The patient remained hemodynamically stable. PHYSICAL EXAMINATION: VITAL SIGNS: Temperature 98.6, pulse 72, respiratory rate 18, and blood pressure 130/70. HEENT: Absent upper and lower dentition noted. NECK: Supple, no JVD. HEART: Regular. CHEST: Equal in expansion, no wheezing, no crackles. ABDOMEN: Soft, no guarding, no rigidity. Bowel sounds present. No palpable mass. EXTREMITIES: No edema. AV graft on the left upper extremity noted. CLINICAL IMPRESSION: 1. Psychotic disorder. 2. Alzheimer dementia. 3. Degenerative joint disease. 4. Hepatitis C. 5. Urinary tract infection. 6. Elevated ammonia. 7. End-stage renal disease, on hemodialysis. PLAN: Psychotic medications as well as psychiatrist follow up as per psychiatrist. We will make a definitive discharge plan. The patient is to continue to receive hemodialysis, IV antibiotic along with continuation of care. We will get the followup lab as well. Care plan has been reviewed and discussed. JOB# [id number]
--- NOTE | 2018-04-17 03:57 | Consultation ---
DATE OF CONSULTATION: 04/16/2018 HISTORY OF PRESENT ILLNESS: An 87-year-old male, dialysis dependent, still with some disorientation, seen with interpretation services today. The patient is denying any SI, states he is feeling "better." Denying any sadness, stating that he is no longer uncomfortable, no longer in pain. He apparently slept okay last night. He is eating better and on a positive note to take his medications today. I spoke with the casework manager yesterday about discharge planning and family also very involved. MENTAL STATUS EXAMINATION: Stated age. Fair eye contact. Mood "better." Affect broader. Thought processes were linear. No SI, no HI, no intent, no plan. No psychotic symptoms. Insight and judgment seem to be improving. Medications were noted. PROVISIONAL DIAGNOSES: Mood, unspecified; anxiety, unspecified; dementia; possibly delirium, which seems to be resolving. RECOMMENDATIONS AND PLAN: No inpatient hospital criteria at this time. No 5150 criteria at this time. He is not suicidal. He is not homicidal. He is not gravely disabled. Improvement noted in regards to his mood. JOB# [id number]
--- NOTE | 2018-04-17 06:47 | Progress Notes ---
DATE: 04/16/2018 LOCATION: [facility], room 18 bed #3. The patient had dialysis yesterday, tolerated it well. The patient is conscious, seems to be more alert. OBJECTIVE: VITAL SIGNS: Temperature 97.5, pulse 71, blood pressure 127/50. Yesterday's intake and output not available. HEART: Regular. LUNGS: Good air entry. ABDOMEN: Soft. EXTREMITIES: No edema. LABORATORY DATA: Hemoglobin 11.3, WBC 6.9, creatinine 8.5, calcium 8.2, potassium 5.1. ASSESSMENT: 1. Chronic kidney disease 5, on chronic hemodialysis Sunday, Sunday, and Sunday. 2. Encephalopathy. 3. Diabetes mellitus. 4. Hypertension. 5. Noncompliance. 6. Anemia. PLAN: Hemodialysis done tomorrow. We will call the lab to figure out why TSH and PTH are not available. Check BMP and potassium and phosphorus in the morning. Discussed with nursing staff. JOB# [id number]
== END 2018-04-16 18:00 | DRG 441 ==
LOC: ER 21:18 → GERO2 23:40 → MSI 04-12 00:22
PROVIDERS: ADMIT Internal Medicine; ATTEND Internal Medicine
PROC: 5A1D70Z Performance of Urinary Filtration, Intermittent, Less than 6 Hours Per Day (ICD-10-PCS; principal; 2018-04-12)
PROC: 5A1D70Z Performance of Urinary Filtration, Intermittent, Less than 6 Hours Per Day (ICD-10-PCS; 2018-04-15)
DX: K72.90 Hepatic failure, unspecified without coma (principal); N18.6 End stage renal disease; I69.359 Hemiplegia and hemiparesis following cerebral infarction affecting unspecified side; F02.81 Dementia in other diseases classified elsewhere, unspecified severity, with behavioral disturbance; N39.0 Urinary tract infection, site not specified; I12.0 Hypertensive chronic kidney disease with stage 5 chronic kidney disease or end stage renal disease; E11.22 Type 2 diabetes mellitus with diabetic chronic kidney disease; F41.9 Anxiety disorder, unspecified; F29 Unspecified psychosis not due to a substance or known physiological condition; M19.90 Unspecified osteoarthritis, unspecified site; M10.9 Gout, unspecified; K21.9 Gastro-esophageal reflux disease without esophagitis; B19.20 Unspecified viral hepatitis C without hepatic coma; E11.51 Type 2 diabetes mellitus with diabetic peripheral angiopathy without gangrene; R45.87 Impulsiveness; G30.9 Alzheimer's disease, unspecified; R79.89 Other specified abnormal findings of blood chemistry; D64.9 Anemia, unspecified; Z53.29 Procedure and treatment not carried out because of patient's decision for other reasons; Z99.2 Dependence on renal dialysis; Z87.11 Personal history of peptic ulcer disease; Z79.82 Long term (current) use of aspirin; Z79.899 Other long term (current) drug therapy; Z91.19 Patient's noncompliance with other medical treatment and regimen
CPT/HCPCS: 36415-UA; 70450-TC; 80053-TC; 80061-TC; 81001-TC; 81003-TC; 82140-TC; 82948-90; 83036-90; 84443-TC; 85025-TC; 86592-TC; 87086-90; 90937; 93005; 96379; J0696; J7030; Z7610